=== PATIENT | female | born 1945 | race Caucasian/White ===

== ENCOUNTER 2023-10-26 06:25 | Inpatient (IN) | payer MEDICARE, SELFPAY ==
[2023-10-26] VITALS (11 sets, daily range): BP systolic 126–164; BP diastolic 56–91
--- NOTE | 2023-10-26 02:42 | ED.GENMED ---
History of Present Illness
<SUJEY Gross - Last Filed: 10/26/23 05:30>
General
Chief Complaint: Musculo-Skeletal Complaint
Source: records and ambulance crew
Exam Limitations: none
Time Seen by Provider: 10/26/23 02:23
Nursing documentation reviewed up to this point in time: agreed with
Travel History
Have you had any contact with someone who has COVID-19?: No
Do you have any symptoms of coronavirus? Fever > 100 degrees, chills, cough, shortness of breath, sore throat, loss of taste or smell, muscle aches, or headache?: No
History of Present Illness
History of Present Illness:
This is a 77 YOF AAOx 2 with PMHx of dementia, HTN, HLD, renal failure presenting with R leg pain. Pt is DNR. Pt arrived via EMS after being sent out from [place] facility. Pt fell 10/24/23 and was evaluated with Mobile Xray, reportedly R femoral neck
fracture noted. Films are not available to ED. Pt also reportedly fell on 10/14/23. XR was read with no abnormalities, but films do show R femoral neck Fx at that time. Head CT revealed small subdural hematoma as well. Pt is not on anticoags,
currently on ASA. Pt is complaining of R hip/leg pain and R hand pain at base of thumb/wrist, pain to palpation and pain with supination/pronation. General abd is distended and tense, no ecchymosis, rashing. TTP of general abd. Pt mentioned dysuria
while attempting to urinate with the [place]. Pt able to void small urine volume.
Past History
<SUJEY Gross - Last Filed: 10/26/23 05:30>
Past History
ED Past Medical History: HTN, Psychiatric and Other (dementia)
Social History
Tobacco: Non-smoker
Alcohol: None
Review of Systems
<SUJEY Gross - Last Filed: 10/26/23 05:30>
Review of Systems
Allergies reviewed?: Yes
All Other Systems: ROS reviewed and negative except as documented in HPI and ROS
Constitutional: Reports no symptoms
EENT: Reports no symptoms
Respiratory: Reports no symptoms
Cardiac: Reports no symptoms
ABD/GI: Reports no symptoms
: Reports dysuria
Musculoskeletal: Reports joint pain (R hip, R hand/wrist)
Skin: Reports no symptoms
Neurological: Reports no symptoms
Hematologic/Lymphatic: Reports no symptoms
Psychiatric: Reports no symptoms
Phy Exam
<Zahida Suazo [facility] - Last Filed: 10/26/23 05:30>
General Physical Exam
General Presentation: moderate distress
General age: appears older than age
General Skin: warm and dry
General Habitus: normal and obese
General Mental: confused
General Hydration: dry mucous membranes and poor skin turgor
General Chronic Disability: demented
Eye Exam
Eye Exam: PERRL
Cardiovascular Exam
Cardiovascular Exam: regular rate/rhythm, no edema, no gallop, no JVD, no murmur and normal peripheral pulses
Pulmonary Exam
Pulmonary Exam: lungs clear, no respiratory distress, no rales, no crackles, no rhonchi, no stridor, no wheezing and no cough
Gastrointestinal Exam
Gastrointestinal Exam: no pulsatile mass, distended, no masses and tender
Auscultation of Abdomen: hypoactive
Neurological Exam
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
Musculoskeletal Exam
Musculoskeletal Exam: neuro vasc intact
Skin Exam
Skin Exam: normal color, warm/dry, no rash and no petechia
Psychiatric Exam
Psychiatric Exam: normal mood/affect
Course
<Zahida Suazo [facility] - Last Filed: 10/26/23 05:30>
Orders/Labs/Results
Orders:
Orders
10/26/23 02:32
CR Hip - RT w/wo Pel 2-3 Vw* Urgent
Comment:
Reason For Exam: R leg pain
Include a pelvis x-ray?: Yes
10/26/23 02:40
Complete Blood Count/With Diff Urgent
Comprehensive Metabolic Panel Urgent
PTT Urgent
Prothrombin Time Urgent
10/26/23 03:53
CR Hand - Right Min 3 Views Urgent
Comment:
Reason For Exam: R hand pain
10/26/23 04:00
CR Wrist - Right Min 3 Views Urgent
Comment:
Reason For Exam: R wrist pain
10/26/23 04:32
Morphine Sulfate 2 mg IV NOW STA
10/26/23 04:33
CT Abd/pel Without Iv Or Oral Urgent
Comment: changed to abd/pel per DR assess fx and c/f bloating
Reason For Exam: fracture
10/26/23 05:07
Urinalysis Reflex To Culture Urgent
Date Specimen was Collected: 10/26/23
Time Specimen was Collected: 04:20
Abnormal Lab Results
10/26/23
02:40
WBC 18.2 H 10^3/uL
(4.8-10.8)
RBC 4.10 L 10^6/uL
(4.20-5.40)
Hct 35.3 L %
(37.0-47.0)
Plt Count 409 H 10^3/uL
(130-400)
Abs Immat Gran (auto) 0.1 H 10^3/uL
(0-0.05)
Absolute Neuts (auto) 14.7 H 10^3/uL
(1.4-6.5)
Absolute Monos (auto) 1.4 H 10^3/uL
(0.1-0.6)
Immature Gran % 0.6 H %
(0-0.5)
Neutrophils % 80.6 H %
(42.2-75.2)
Lymphocytes % 9.8 L %
(20.5-51.1)
APTT 41.5 H Sec
(23.4-35.0)
BUN 28 H mg/dl
(7-17)
Glucose 134 H mg/dl
(70-99)
Total Protein 6.1 L g/dl
(6.3-8.2)
Albumin 3.3 L g/dl
(3.5-5.0)
10/26/23 02:40
10/26/23 02:40
Vital Signs
Initial and Last Documented VS:
Initial Vital Signs
Temp Pulse Resp BP Pulse Ox
97.4 F 82 20 145/84 94
10/26/23 02:24 10/26/23 02:24 10/26/23 02:24 10/26/23 02:24 10/26/23 02:24
Last Documented Vital Signs
Temp Pulse Resp BP Pulse Ox
97.4 F 82 18 153/71 95
10/26/23 02:24 10/26/23 05:28 10/26/23 05:28 10/26/23 05:05 10/26/23 05:28
<Mikael Thompson, DO - Last Filed: 10/26/23 05:37>
Orders/Labs/Results
Orders:
Orders
10/26/23 02:32
CR Hip - RT w/wo Pel 2-3 Vw* Urgent
Comment:
Reason For Exam: R leg pain
Include a pelvis x-ray?: Yes
10/26/23 02:40
Complete Blood Count/With Diff Urgent
Comprehensive Metabolic Panel Urgent
PTT Urgent
Prothrombin Time Urgent
10/26/23 03:53
CR Hand - Right Min 3 Views Urgent
Comment:
Reason For Exam: R hand pain
10/26/23 04:00
CR Wrist - Right Min 3 Views Urgent
Comment:
Reason For Exam: R wrist pain
10/26/23 04:32
Morphine Sulfate 2 mg IV NOW STA
10/26/23 04:33
CT Abd/pel Without Iv Or Oral Urgent
Comment: changed to abd/pel per DR assess fx and c/f bloating
Reason For Exam: fracture
10/26/23 05:07
Urinalysis Reflex To Culture Urgent
Date Specimen was Collected: 10/26/23
Time Specimen was Collected: 04:20
Abnormal Lab Results
10/26/23
02:40
WBC 18.2 H 10^3/uL
(4.8-10.8)
RBC 4.10 L 10^6/uL
(4.20-5.40)
Hct 35.3 L %
(37.0-47.0)
Plt Count 409 H 10^3/uL
(130-400)
Abs Immat Gran (auto) 0.1 H 10^3/uL
(0-0.05)
Absolute Neuts (auto) 14.7 H 10^3/uL
(1.4-6.5)
Absolute Monos (auto) 1.4 H 10^3/uL
(0.1-0.6)
Immature Gran % 0.6 H %
(0-0.5)
Neutrophils % 80.6 H %
(42.2-75.2)
Lymphocytes % 9.8 L %
(20.5-51.1)
APTT 41.5 H Sec
(23.4-35.0)
BUN 28 H mg/dl
(7-17)
Glucose 134 H mg/dl
(70-99)
Total Protein 6.1 L g/dl
(6.3-8.2)
Albumin 3.3 L g/dl
(3.5-5.0)
10/26/23 02:40
10/26/23 02:40
Vital Signs
Initial and Last Documented VS:
Initial Vital Signs
Temp Pulse Resp BP Pulse Ox
97.4 F 82 20 145/84 94
10/26/23 02:24 10/26/23 02:24 10/26/23 02:24 10/26/23 02:24 10/26/23 02:24
Last Documented Vital Signs
Temp Pulse Resp BP Pulse Ox
97.4 F 82 18 153/71 95
10/26/23 02:24 10/26/23 05:28 10/26/23 05:28 10/26/23 05:05 10/26/23 05:28
<SUJEY Gross - Last Filed: 10/26/23 05:30>
MDM/Problems Addressed
Differential Diagnosis Includes:
R hip fx, R hand fx, R wrist fx, abd hemorrhage, bowel obstruction, constipation, R hand injury, UTI
MDM/Problems Addressed:
77 YOF presenting with R leg pain
Chronic conditions affecting care:
Dementia, frequent falls
Acute Exacerbation and/or Progression of Chronic Illness:
Dementia, frequent falls
<Mikael Thompson DO - Last Filed: 10/26/23 05:37>
*Radiology
Radiology exam reviewed: preliminary read by ED provider (Right hip fracture)
*Pulse Oximetry
Patient hypoxic: no
*Critical Care Note
Total Time (30-74mins, 75-104mins- exclusive of procedures): Not Applicable
<DO Manuel Allen Last Filed: 10/26/23 05:37>
Patient Management
Social determinants of health affecting care: Living situation
Discussion with other providers: [facility] (Dr. Jovana Rodgers, orthopedics)
<SUJEY Gross - Last Filed: 10/26/23 05:30>
Update Note
Update Note:
10/26/23 0529: Pt is sleeping soundly in bed. BP 157/71, HR 77, SpO2 94%.
<Mikael Thompson DO - Last Filed: 10/26/23 05:37>
Update Note
Update Note:
10/26/23528: Pt is sleeping soundly in bed. BP 157/71, HR 77, SpO2 94%.
CT A/P W/O IV CONTRAST
IMPRESSION:
Decreased sensitivity in the evaluation of the abdominal viscera due to lack of IV contrast.
No definite CT findings to account for the reported pain/symptoms.
No evidence of hydroureteronephrosis or obstructing stone. No signficant perinephric fat stranding.
Mild bladder wall thickening, greater than expected for the degree of distention. Mild fat infiltration along the margins. Possibly due to infection. Please check for signs of infection.
No appendicitis or colitis. Moderate colonic stool volume. Constipation?
No evidence of small bowel obstruction.
No free fluid or free air.
No AAA.
Bibasilar atelectasis and/or scarring
Case finalized at 511am ET.
ED Attending Note
<SUJEY Gross - Last Filed: 10/26/23 05:30>
-
Portions of this chart may have been created with voice recognition software.� Occasional wrong word or��sound alike� substitutions may have occurred due to the inherent limitations of voice recognition software.
<Mikael Thompson DO - Last Filed: 10/26/23 05:37>
ED Attending Note
Patient seen and examined by attending physician: Yes
I performed the substantive portion of visit, reviewed & personally made and approve the management plan that is documented in note by myself or JENI.: Yes
ED Attending Note:
This a pleasant 77-year-old female presents with right hip pain. She was sent from a nursing facility for evaluation of her right hip. She fell a few days ago and had a mobile x-ray today which showed a right hip fracture. patient also had a fall
on 10/14/2023. Patient did have a CT scan at last visit which showed a small subdural hematoma. She was made DNR and according to the last note, family did not want surgery. I did attempt to call family this evening with no answer. Patient was
seen in conjunction with the PA student. I have reviewed and agree with the history and treatment plan presented. Patient has ecchymosis about the face. She has right hip pain. Right leg is slightly shortened. Right wrist is tender to
palpation. Slight abdominal distention. Spoke with Agustina Rodgers, orthopedic surgery who saw the films.
10/26/2023 0343 AM I attempted to contact family without success. [phone]
10/26/2023 0403 AM: Third attempt to call family unsuccessful.
Discharge Plan
Departure
Patient Disposition: Admit
Date of Disposition: 10/26/23
Time of Disposition: 05:36
Admit to: Med/Surg
Presentation/result/management discussed w/ accepting MD/DO: Hospitalist
Condition: Good
Discharge Problem:
Closed hip fracture
Prescriptions:
No Action
atorvastatin [Lipitor] 40 mg Tablet
40 mg PO HS
acetaminophen [Tylenol] 325 mg Tablet
650 mg PO Q4HPRN PRN (Reason: mild pain)
cyanocobalamin (vitamin B-12) 1,000 mcg Tablet
1,000 mcg PO DAILY
Theragen Tablet
1 tab PO DAILY
melatonin 3 mg Tablet
3 mg PO HS
olanzapine [Zyprexa] 7.5 mg Tablet
7.5 mg PO HS
amlodipine [Norvasc] 10 mg Tablet
10 mg PO DAILY
pantoprazole [Protonix] 40 mg Tablet,Delayed Release (Dr/Ec)
40 mg PO DAILY
aspirin 81 mg Tablet,Chewable
81 mg PO DAILY
Referrals:
PRIVATE,PHYSICIAN [Family Provider] -
Interventions
Interventions:
*Risk Screen - Suicide Last Done: 10/26/23 02:24
*General Assessment Last Done: 10/26/23 02:24
*Neglect/Abuse Screening Last Done: 10/26/23 02:24
ED- Fall Risk Assessment Last Done: 10/26/23 02:40
*ED COVID-19 Vaccine History Last Done: 10/26/23 02:24
ED-Musculoskeletal Assessment Last Done: 10/26/23 02:40
[2023-10-26 03:07] LABS: % Basophils 0.4 % (0-2); % Eosinophils 0.9 % (0-6); % Immature Granulocytes 0.6 % (0-0.5); % Lymphocytes 9.8 % (20.5-51.1); % Monocytes 7.7 % (1.7-9.3); % Neutrophils 80.6 % (42.2-75.2); Absolute Basophils 0.1 10^3/uL (0-0.2); Absolute Eosinophils 0.2 10^3/uL (0-0.7); Absolute Immature Granulocytes 0.1 10^3/uL (0-0.05); Absolute Lymphocytes 1.8 10^3/uL (1.2-3.4); Absolute Monocytes 1.4 10^3/uL (0.1-0.6); Absolute Neutrophils 14.7 10^3/uL (1.4-6.5); Hematocrit 35.3 % (37.0-47.0); Hemoglobin 12.2 g/dL (12.0-16.0); Mean Corp Hgb Conc. 34.6 g/dL (33.0-37.0); Mean Corpuscular Hgb 29.8 pg (27.0-31.0); Mean Corpuscular Volume 86.1 fL (81.0-99.0); Mean Platelet Volume 8.8 fL (7.4-10.4); Nucleated Red Blood Cells % 0 %; Platelet Count 409 10^3/uL (130-400); Red Cell Dist. Width 14.2 % (11.5-14.5); White Blood Cell Count 18.2 10^3/uL (4.8-10.8)
[2023-10-26 03:23] LABS: INR 1.06
[2023-10-26 03:24] LABS: APTT 41.5 Sec (23.4-35.0)
[2023-10-26 03:39] LABS: ALT (SGPT) 21 U/L (0-35); AST (SGOT) 23 U/L (14-36); Albumin 3.3 g/dl (3.5-5.0); Alkaline Phosphatase 122 U/L (38-126); Blood Urea Nitrogen 28 mg/dl (7-17); Calcium 8.5 mg/dl (8.4-10.2); Carbon Dioxide 23 mmol/L (22-30); Chloride 103 mmol/L (98-107); Glucose 134 mg/dl (70-99); Potassium 4.2 mmol/L (3.5-5.1); Sodium 138 mmol/L (135-145); Total Bilirubin 0.8 mg/dl (0.2-1.3); Total Protein 6.1 g/dl (6.3-8.2); eGFR > 60.00
[2023-10-26] MEDS: MORPHINE SULFATE 2 MG IV (04:40)
[2023-10-26 05:31] LABS: Urine Albumin Trace (Neg - Trace); Urine Bilirubin Negative (Negative); Urine Color Yellow; Urine Glucose Negative (Negative); Urine Ketone Negative (Negative); Urine Leukocyte 2+ (Negative); Urine Nitrite Positive (Negative); Urine Occult Blood Trace (Negative); Urine Specific Gravity 1.005 (<1.030); Urine Urobilinogen Negative (Neg - 1+)
[2023-10-26 05:39] LABS: Urine Character Cloudy (Clear)
--- NOTE | 2023-10-26 06:10 | HPS.HSE ---
Addendum entered and electronically signed by Justice Angelo DO 10/26/23 06:24:
A/P:
Bladder Dysfunction
Abnormal UA
- Potential UTI / bladder dysfunction.
- Cover with IV ceftriaxone for now.
- Bladder scan protocol and cath as needed.
Constipation
Abdominal Distention
- Imaging in the ED reports no SBO.
- Abdomen is distended on exam - though not tender.
- No N/V.
- Bowel regimen and follow for adequate results.
- Monitor for improvement in distention.
- Consider further evaluation if patient develops N/V or other new complaints.
Original Note:
Family Physician
-
Family Physician: PHYSICIAN PRIVATE
Chief Complaint
-
Falls
History of Present Illness
Patient is a 77y F with PMH significant for hypertension, dementia and recent fall with SDH who presents to ED for evaluation of R hip / low back pain. Patient recently suffered a fall at her NH on 10/14/23. She was evaluated in the ED here at
that time and found to have evidence of SDH. She was transferred to [facility] for evaluation. Family ultimately opted for comfort measures. No intervention was performed.
Patient returned to her NH and suffered a second fall on 10/24/23.
She appeared to have increased pain in the low back / R hip following this and a hip x-ray was performed.
This shows a R femoral fracture and patient was sent to the ED for evaluation.
In the ED, patient complains of pain from BP cuff squeezing, but denies any other complaints at this time.
She is unable to tell me why she is here and she does not recall falling.
History from patient is very limited due to underlying dementia.
Medical History
Past Medical History
Past Medical History: Reports Other
Additional Past Medical History:
Senile Dementia with Behavioral Disturbance
Hypertension
Bladder Dysfunction
Gait Dysfunction
Past Surgical History: Reports Other
Additional Past Surgical History:
None Known
Social History
Unable to obtain full social history at this time due to: Dementia
Family History
Family History: Unable to Obtain
Allergies / Home Medications
Allergies reflects when Allergies were last updated in [facility] [employer]
Home Medications with original date entered in [facility] [facility] [employer]
Allergy/Medication List:
Allergies
Allergy/AdvReac Type Severity Reaction Status Date / Time
Penicillins Allergy Unknown Verified 10/14/23 11:59
Home Medications
acetaminophen 325 mg tablet (Tylenol) 650 mg PO Q4HPRN PRN mild pain 10/14/23
amlodipine 10 mg tablet (Norvasc) 10 mg PO DAILY 10/14/23
aspirin 81 mg chewable tablet 81 mg PO DAILY 10/14/23
atorvastatin 40 mg tablet (Lipitor) 40 mg PO HS 10/14/23
cyanocobalamin (vitamin B-12) 1,000 mcg tablet 1,000 mcg PO DAILY 10/14/23
melatonin 3 mg tablet 3 mg PO HS 10/14/23
olanzapine 7.5 mg tablet (Zyprexa) 7.5 mg PO HS 10/14/23
pantoprazole 40 mg tablet,delayed release (Protonix) 40 mg PO DAILY 10/14/23
therapeutic multivitamin 1 tab PO DAILY 10/14/23
Review of Systems
-
Unable to obtain full review of systems at this time due to: Other (Limited ROS obtained secondary to dementia. Patient denies any back pain / hip pain at present. No chest pain / dyspnea.)
History Source: Patient
A 12 point ROS was completed and negative except as noted: No
Physical Exam
Vital Signs
Vital Signs
Temp Pulse Resp BP Pulse Ox
97.4 F 82 18 153/71 95
10/26/23 02:24 10/26/23 05:28 10/26/23 05:28 10/26/23 05:05 10/26/23 05:28
Physical Exam
General: Other (77y F in no distress.)
HEENT: Other (Ecchymosis and some evident edema in periorbital regions. Eyes open and vision seems intact. No headache / neck stiffness. etc.)
Respiratory: Clear; No Wheezes, Rales or Rhonchi
Cardiac: S1/S2 and Regular Rhythm
GI: Other (Distended and tympanic. Bowel sounds are appreciated. Not tender. No rebound / guarding.)
Musculoskeletal: No Clubbing, No Cyanosis and Other (1-2+ pitting edema. RLE externally rotated.)
Neuro: Awake and Alert; No Oriented
Laboratory Results
-
10/26/23 02:40
10/26/23 02:40
Laboratory Results
PT 14.0 Sec (11.4-14.6) 10/26/23 02:40
INR 1.06 10/26/23 02:40
APTT 41.5 Sec (23.4-35.0) H 10/26/23 02:40
Total Bilirubin 0.8 mg/dl (0.2-1.3) 10/26/23 02:40
AST 23 U/L (14-36) 10/26/23 02:40
ALT 21 U/L (0-35) 10/26/23 02:40
Alkaline Phosphatase 122 U/L (38-126) 10/26/23 02:40
Impression/Plan
-
A/P: Patient is a 77y F with PMH significant for HTN and dementia who presents to ED for evaluation of R hip fracture.
Right Hip Fracture
- Admit for further evaluation and treatment.
- Unclear when this took place as - in retrospect - it appears this may have been present on 10/14 images.
- Pain control. Bedrest. Supportive care for now.
- Ortho evaluation.
- Unable to reach family this evening despite multiple attempts to determine whether operative intervention would be desired.
SDH
- s/p fall on 10/14 with SDH and subsequent admission to [facility].
- No intervention performed.
- Patient is awake and interactive.
- Ecchymosis / evident sequelae of recent trauma is apparent.
- Monitor for changes in Neuro status.
- Family declined any neurosurgical intervention at time of original diagnosis.
Benign Hypertension
- BP somewhat elevated in the ED - likely secondary to pain.
- Continue outpatient amlodipine.
- Continue efforts at pain control.
Senile Dementia with Behavioral Disturbance
- Baseline is not clear and unable to review with family at this time.
- Continue current meds including HS Zyprexa.
- Follow for delirium / changes in mood during acute hospitalization.
DVT Prophylaxis: SCDs
Code Status: DNR per Advanced Directive
[2023-10-26 06:15] LABS: Urine Amorphous Seen; Urine Bacteria Many (Negative); Urine Mucus Moderate; Urine Squamous Cell >30 /LPF (Few); Urine White Cell >100 /HPF (0-5)
--- NOTE | 2023-10-26 09:44 | W.PN.UPDATE ---
Update Note
Progress Note Update
Patient seen on morning rounds. Full consult note to follow.
Unfortunately, it appears Jovana sustained a right femoral neck fracture in her fall. We recommend proceeding with a right hip hemiarthroplasty. The risks, benefits, alternatives, recovery process and potential complications were discussed with her
brother, Figueroa. He would like to proceed with surgical intervention of Jovana's fracture. Surgical and blood consents were obtained over the phone and are on the patient's chart. We will proceed with surgery on 10/28/23 under the direction of
Dr. Rodgers.
--NWB to RLE.
--NPO after midnight for surgery 10/28.
--Continue pain control per primary.
[2023-10-26] MEDS: TYLENOL 1000 MG PO ×2 (09:52→21:19)
[2023-10-26] MEDS: NSS 1000 IV (09:53)
[2023-10-26] MEDS: STERILE WATER FOR INJECTION 10 ML IV (09:54)
[2023-10-26] MEDS: ROCEPHIN 1000 MG IV (09:55)
--- NOTE | 2023-10-26 09:56 | W.PN.HOSP.TC ---
Addendum entered and electronically signed by Tanvi Faust MD 10/26/23 13:15:
SPL [facility] IDDSI soft and bite size , diet changed to such
Original Note:
Today's Communication/Plan
-
see A/P
Assessment / Plan
Assessment / Plan
HPI:�77y F with PMH significant for hypertension, dementia and recent fall with SDH who presented to ED for evaluation of R hip / low back pain.�
Patient recently suffered a fall at her NH on 10/14/23.� She was evaluated in the ED here at that time and found to have SDH.�She was transferred to [facility] for evaluation. Family ultimately opted for comfort measures.�No intervention was performed.
Patient returned to her NH and suffered a second fall on 10/24/23.
She appeared to have increased pain in the low back / R hip following this and a hip x-ray was performed. This showed a R femoral fracture and patient was sent to the ED for evaluation.
In the ED, patient complains of pain from BP cuff squeezing, but denies any other complaints at this time.
She is unable to tell why she is here and she does not recall falling.
History from patient is very limited due to underlying dementia.
A/P:
# Right Hip Fracture
Unclear when this took place as - in retrospect - it may have been present on 10/14 images.
Cont Pain control with Tylenol, Tramadol, Morphine PRN.� Bedrest.�
Ortho on board: [facility] Right hip hemiarthroplasty for her Right femoral neck fracture. Plan for surgery on 10/28/[address] Rodgers. NPO after midnight for surgery 10/28.
NWB to RLE.
Pt is medically stable for low-mod risk procedure
# SDH
# s/p fall on 10/14 with SDH and subsequent admission to [facility].
No intervention performed.
Patient is awake and interactive, though not orientated due to underlying dementia.
Ecchymosis / evident sequelae of recent trauma is apparent.
Monitor for changes in Neuro status.
Family declined any neurosurgical intervention at time of original diagnosis.
# Benign Hypertension
BP somewhat elevated in the ED - likely secondary to pain.
Holding [employer] amlodipine with BL LE edema.
Will order Lasix 40 mg x1 for pedal edema.
use IV hydralazine IV PRN for SBP > 160
No additional IVF
Continue efforts at pain control.
# Senile Dementia with Behavioral Disturbance
Baseline is not clear and unable to review with family at this time.
Continue current meds including HS Zyprexa.
Follow for delirium / changes in mood during acute hospitalization.
# Possible UTI
# Leucocytosis
Follow urine Cx
Pt was started with ceftriaxone, cont
DVT Prophylaxis:� SCDs
Code Status:� DNR per Advanced Directive
DW RN
Anticipated Discharge: > 48 hours
Subjective/Interval History
-
Date of Service: October 26, 2023
Objective Data
-
Labs:
Laboratory Results
10/26/23
02:40
WBC 18.2 H
Hgb 12.2
Hct 35.3 L
Plt Count 409 H
PT 14.0
INR 1.06
APTT 41.5 H
Sodium 138
Potassium 4.2
Chloride 103
Carbon Dioxide 23
BUN 28 H
Creatinine 0.7
Glucose 134 H
Calcium 8.5
Total Bilirubin 0.8
AST 23
ALT 21
Alkaline Phosphatase 122
Vital Signs:
Vital Signs
Temp Pulse Resp BP Pulse Ox
36.4 C 82 16 164/83 91
10/26/23 08:00 10/26/23 08:00 10/26/23 08:00 10/26/23 08:00 10/26/23 08:00
Review of Systems
-
Unable to obtain full review of systems at this time due to: Dementia
Physical Exam
-
General: Well Developed, Well Nourished, No Apparent Distress and Comfortable; Negative Respiratory Distress
HEENT: Normocephalic, Atraumatic, Nose Appears Normal and Ears Appear Normal; Negative Oxygen
Respiratory: Clear to Auscultation and Non Labored Respirations; Negative Accessory Resp Muscle Use
Cardiac: Regular Rhythm and S1/S2
GI: Soft, Nontender, Nondistended and Normal Bowel Sounds
Musculoskeletal: Edema, Right Lower Extrem and Edema, Left Lower Extrem
Skin: Warm and Dry
Neuro: Awake
Psych: Calm and Apparent Dementia
Data Reviewed
-
Labs: Labs Reviewed by me
[2023-10-26] MEDS: PROTONIX 40 MG PO (09:57)
[2023-10-26] MEDS: COLACE 100 MG PO (09:57)
[2023-10-26] MEDS: SENOKOT 8.59999999999999964 MG PO ×2 (09:57→21:19)
[2023-10-26] MEDS: NORVASC 10 MG PO (09:57)
[2023-10-26] MEDS: MIRALAX 17 GRAMS PO (09:58)
[2023-10-26] MEDS: LASIX 40 MG IV (10:42)
--- NOTE | 2023-10-26 12:18 | CON.ORTHO ---
Consultation
-
Date/Time Consultation Requested: 10/26/2023; time unknown
Date/Time Consultation Performed: 10/26/2023; 0800
Requesting Provider: unknown
Performing Provider: Alysia Guzman PA-C for Dr. Jovana Rodgers
Reason for Consultation: Right hip fracture
Consultation - Orthopedics
History
Ms. Robin is a 77 year old female with PMH of HTN and dementia. She was seen here for a recent fall and SDH on 10/14/2023. She was transferred to [place] for further management at that time. She returned to her fpc and had a second fall
on 10/24/2023. Patient is a limited historian secondary to dementia, so history was taken from medicine note and from her brother, Figueroa. He reports she has been complaining of hip and thigh pain for the last week or so. She was transferred to ED
from her fpc where x-rays and CT scan revealed a femoral neck fracture. She is resting comfortably in bed this morning, and denies any pain in the hip at present.
Per her brother, she typically ambulates with the assistance of a walker at baseline. He denies previous orthopedic surgeries or difficulty with anesthesia. He denies PMH of DVT, CVA, [place] or DM.
Allergies / Home Medications
Allergy/AdvReac Type Severity Reaction Status Date / Time
Penicillins Allergy Unknown Verified 10/14/23 11:59
Medication Instructions Recorded
acetaminophen 325 mg tablet 650 mg PO Q4HPRN PRN mild pain 10/14/23
(Tylenol)
amlodipine 10 mg tablet (Norvasc) 10 mg PO DAILY 10/14/23
aspirin 81 mg chewable tablet 81 mg PO DAILY 10/14/23
atorvastatin 40 mg tablet (Lipitor) 40 mg PO HS 10/14/23
cyanocobalamin (vitamin B-12) 1,000 mcg PO DAILY 10/14/23
1,000 mcg tablet
melatonin 3 mg tablet 3 mg PO HS 10/14/23
olanzapine 7.5 mg tablet (Zyprexa) 7.5 mg PO HS 10/14/23
pantoprazole 40 mg tablet,delayed 40 mg PO DAILY 10/14/23
release (Protonix)
therapeutic multivitamin 1 tab PO DAILY 10/14/23
Vital Signs / Lab Results
Temp Pulse Resp BP Pulse Ox
97.6 F 82 16 164/83 91
10/26/23 08:00 10/26/23 08:00 10/26/23 08:00 10/26/23 09:57 10/26/23 08:00
10/26/23 02:40
10/26/23 02:40
XR Right Hip 10/26/2023 reveals right femoral neck fracture.
CTA 10/26/2023 IMPRESSION:
Fracture, neck, proximal right femur.
Physical Exam:
General: pleasant female in NAD, oriented to self
Head: ecchymosis about bilateral orbits and scattered about face
Eyes: sclera anicteric
Ears: normal hearing
Lungs: normal work of breathing
Heart: no edema
Right hip: No obvious erythema, ecchymosis, edema or lesions. Mild tenderness to palpation about the lateral and anterior hip. ROM deferred secondary to known fracture. Positive log roll. Calf soft and nontender. Patient able to wiggle toes, plantar
and dorsiflex ankle. Neurovascularly intact distally.
Assessment / Plan
Right femoral neck fracture
--Unfortunately, it appears Jovana sustained a right femoral neck fracture in her fall. We recommend proceeding with a right hip hemiarthroplasty. The risks, benefits, alternatives, recovery process and potential complications were discussed with her
brother, Figueroa. He would like to proceed with surgical intervention of Jovana's fracture. Surgical and blood consents were obtained over the phone and are on the patient's chart. We will proceed with surgery on 10/28/23 under the direction of
Dr. Rodgers.
--NWB to RLE.
--NPO after midnight for surgery 10/28.
--Continue pain control per primary. Ice and elevation for edema control.
--T+S
--Antibiotics and irrigation ordered to OR.
--Orthopedics will continue to follow along.
--- NOTE | 2023-10-26 13:13 | PTOTSP ---
Dysphagia Evaluation
Patient presents with signs concerning for mild oral dysphagia with no signs concerning for pharyngeal dysphagia or aspiration observed at the bedside.
She has chronic risk factors for dysphagia (i.e., dementia, hiatal hernia) and is at an elevated risk for complications if aspiration were to occur at this time given decreased mobility after a hip fracture. She is on a modified diet (mechanical
soft) at baseline and is appropriate to continue this.
Recommend:
1. IDDSI Level 6 (soft and bite sized), IDDSI Level 0 (thin liquids)
2. Medications - crushed in puree if medically cleared to do so
3. Supervision and assistance as needed to use swallowing strategies
4. Strategies: alternate solids and liquids, ensure patient clears oral cavity before next sip/bite, reflux precautions (upright to 30 degrees after PO intake)
5. Oral care 3-5x daily
Patient is at her baseline diet and dysphagia tx not warranted. Please reconsult post-op if any signs of dysphagia noted after intubation for OR.
--- NOTE | 2023-10-26 16:03 | PTCARENOTE ---
Received patient from ER around 0730 via stretcher in stable condition. Patient confused. Not oriented to time or place. Bed alarm in place. Pain only with movement. SCDs applied as ordered but patient pulling off. Patient pulled out IV site.
Patient was attempting to climb out of bed and taking off gown and hospital bracelets. Med Sitter put in place. At around 1500 patient became more agitated and aggressive with staff. Pull at IV and taking off gown. Attempting to climb out of bed.
Patient yelling at staff for a rosado. Unable to reorient. Dr. Faust notified. Ativan 0.5 mg IV ordered. Pending pharmacy approval. Will continue to monitor.
[2023-10-26] MEDS: NSS (PRESERVATIVE FREE) 0.25 ML IV (16:29)
[2023-10-26] MEDS: ATIVAN 0.5 MG IV (16:29)
[2023-10-26] MEDS: TYLENOL PO (16:35)
--- NOTE | 2023-10-26 16:46 | CM ---
Chart reviewed. Spoke with pts brother Figueroa
Pt with R hip fx - for OR on 10/28
Verified resident at [facility]
Spoke with Figueroa - pts brother
Prior to admission pt was living in [facility] at [place] - dementia
Baseline ambulating with rolling walker, assist with adl's - needs direction
Plan - tbd based on PT/OT post-op needs
--- NOTE | 2023-10-26 20:19 | W.PN.UPDATE ---
Update Note
Progress Note Update
Agree with orthopedic PA note. Orthopedic PA spoke with brother who is power of convex grinder for consent for operation. Patient does have dementia.
Apparently she has sustained multiple falls last of which was 2 days ago. She did have an acute subdural bleed recently.
Right lower extremity: Mild shortening. Pain with logroll. Neurovascularly intact. No ecchymosis.
X-rays and CT scan of right hip and abdomen and pelvis show a displaced femoral neck fracture. No lesions. Unsure of chronicity
Impression displaced right femoral neck fracture
Plan: Nonoperative and operative approaches were discussed with patient and brother who is power of convex grinder. He is in agreement with right hip hemiarthroplasty. We will proceed with the surgery on Tuesday once patient is medically optimized and
proper staffing/OR time is available. The risks are but are not limited to infection, need for further surgery, need for physical therapy, stiffness, DVT, PE, catastrophic occurrences, periprosthetic fracture, dislocation, limb length discrepancy,
neurovascular impairment, foot drop, etc. Consent was signed by brother who is power of convex grinder via telephone conversation.
[2023-10-26] MEDS: ZYPREXA 7.5 MG PO (21:19)
[2023-10-26] MEDS: COLACE PO ×2 (21:19→21:30)
--- NOTE | 2023-10-27 06:17 | W.PN.UPDATE ---
Update Note
Progress Note Update
Patient seen and evaluated this morning by orthopedic surgery. Patient is laying comfortably in bed, does not appear to be in any acute distress.
PE: Mild shortening of the right lower extremity. Pain with logroll. Neurovascularly intact. No ecchymosis.
Plan: Will plan to proceed with right hip hemiarthroplasty under direction of Dr. Rodgers 10/28/2023. Patient has been medically cleared to proceed with surgical intervention. Hemoglobin today 12.1, continue to monitor. NWB to RLE until
postop. NPO after midnight for surgery 10/28. Continue pain control per primary team. Ice and elevation for edema control. Type and screen completed. Right hip marked as the correct surgical extremity. Antibiotics and irrigation will call to the
OR. Surgical and blood consent forms have been obtained. Orthopedic surgery will continue to follow along.
[2023-10-27 06:38] LABS: Hematocrit 35.1 % (37.0-47.0); Hemoglobin 12.1 g/dL (12.0-16.0); Mean Corp Hgb Conc. 34.5 g/dL (33.0-37.0); Mean Corpuscular Volume 87.1 fL (81.0-99.0); Platelet Count 439 10^3/uL (130-400); Red Blood Cell Count 4.03 10^6/uL (4.20-5.40); Red Cell Dist. Width 14.1 % (11.5-14.5); White Blood Cell Count 20.4 10^3/uL (4.8-10.8)
[2023-10-27 07:02] LABS: Blood Urea Nitrogen 23 mg/dl (7-17); Calcium 9.1 mg/dl (8.4-10.2); Carbon Dioxide 27 mmol/L (22-30); Chloride 102 mmol/L (98-107); Glucose 120 mg/dl (70-99); Magnesium 2.2 mg/dl (1.6-2.3); Potassium 3.6 mmol/L (3.5-5.1); Sodium 138 mmol/L (135-145); eGFR > 60.00
[2023-10-27 07:25] VITALS: BP 138/75
[2023-10-27] MEDS: STERILE WATER FOR INJECTION 10 ML IV (08:28)
[2023-10-27] MEDS: COLACE PO ×3 (08:29→20:23)
[2023-10-27] MEDS: ROCEPHIN 1000 MG IV (08:29)
[2023-10-27] MEDS: SENOKOT PO ×3 (10:16→20:23)
[2023-10-27] MEDS: TYLENOL PO ×2 (10:16→23:27)
[2023-10-27] MEDS: MIRALAX PO (10:16)
[2023-10-27] MEDS: PROTONIX PO (10:16)
--- NOTE | 2023-10-27 10:59 | W.PN.HOSP.TC ---
Today's Communication/Plan
-
see A/P
Assessment / Plan
Assessment / Plan
HPI:�77y F with PMH significant for hypertension, dementia and recent fall with SDH who presented to ED for evaluation of R hip / low back pain.�
Patient recently suffered a fall at her NH on 10/14/23.� She was evaluated in the ED here at that time and found to have SDH.�She was transferred to [facility] for evaluation. Family ultimately opted for comfort measures.�No intervention was performed.
Patient returned to her NH and suffered a second fall on 10/24/23.
She appeared to have increased pain in the low back / R hip following this and a hip x-ray was performed. This showed a R femoral fracture and patient was sent to the ED for evaluation.
In the ED, patient complains of pain from BP cuff squeezing, but denies any other complaints at this time.
She is unable to tell why she is here and she does not recall falling.
History from patient is very limited due to underlying dementia.
A/P:
# Right Hip Fracture
Unclear when this took place as - in retrospect - it may have been present on 10/14 images.
Cont Pain control with Tylenol, Tramadol, Morphine PRN.�Cont bowel regimen.
Ortho recc Right hip hemiarthroplasty on Tuesday10/28/[address] Rodgers. NPO after midnight for surgery 10/28.
NWB to RLE.
Pt is medically stable for low-mod risk procedure
# SDH
# s/p fall on 10/14 with SDH and subsequent admission to [facility].
No intervention performed.
Patient is awake and interactive, though not orientated due to underlying dementia.
Ecchymosis / evident sequelae of recent trauma is apparent.
Monitor for changes in Neuro status.
Family declined any neurosurgical intervention at time of original diagnosis.
# Benign Hypertension
BP somewhat elevated in the ED - likely secondary to pain.
Holding FOUNDRY PROCESS ENGINEER amlodipine with BL LE edema.
s/p Lasix 40 mg x1 for pedal edema, which helped.
use IV hydralazine IV PRN for SBP > 160
No additional IVF
Continue efforts at pain control.
# Senile Dementia with Behavioral Disturbance
She is awake, minimally conversant, not orientated at baseline
s/p Ativan and Seroquel
Cont FOUNDRY PROCESS ENGINEER Zyprexa HS
Follow for delirium / changes in mood during acute hospitalization.
# Possible UTI with Leucocytosis
Follow urine Cx, blood culture
Pt was started with ceftriaxone, cont
DVT Prophylaxis:� SCDs
Code Status:� DNR per Advanced Directive
Anticipated Discharge: > 48 hours
Subjective/Interval History
-
Date of Service: October 27, 2023
Objective Data
-
Labs:
Laboratory Results
10/27/23
05:51
WBC 20.4 H
Hgb 12.1
Hct 35.1 L
Plt Count 439 H
Sodium 138
Potassium 3.6
Chloride 102
Carbon Dioxide 27
BUN 23 H
Creatinine 0.7
Glucose 120 H
Calcium 9.1
Vital Signs:
Vital Signs
Temp Pulse Resp BP Pulse Ox
36.6 C 93 18 138/75 93
10/27/23 07:25 10/27/23 07:25 10/27/23 07:25 10/27/23 07:25 10/27/23 07:25
I&O
10/26/23 10/27/23 10/28/23
06:59 06:59 06:59
Intake Total 120 / 120
Output Total 1500 / 1500
Balance -1380 / -1380
Review of Systems
-
Unable to obtain full review of systems at this time due to: Dementia
Physical Exam
-
General: Well Developed, Well Nourished, No Apparent Distress and Comfortable; Negative Respiratory Distress
HEENT: Normocephalic, Atraumatic, Nose Appears Normal and Ears Appear Normal; Negative Oxygen
Respiratory: Clear to Auscultation and Non Labored Respirations; Negative Accessory Resp Muscle Use
Cardiac: Regular Rhythm and S1/S2
GI: Soft, Nontender, Nondistended and Normal Bowel Sounds
Musculoskeletal: Edema, Right Lower Extrem and Edema, Left Lower Extrem
Skin: Warm and Dry
Neuro: Awake
Psych: Calm and Apparent Dementia
Data Reviewed
-
Labs: Labs Reviewed by me
[2023-10-27 15:20] VITALS: BP 142/87
[2023-10-27] MEDS: TYLENOL 1000 MG PO (15:55)
[2023-10-27 23:05] VITALS: BP 157/80
[2023-10-27] MEDS: ZYPREXA PO (23:28)
[2023-10-28] VITALS (9 sets, daily range): BP systolic 102–127; BP diastolic 46–76
[2023-10-28 06:33] LABS: Hematocrit 33.7 % (37.0-47.0); Hemoglobin 11.5 g/dL (12.0-16.0); Mean Corp Hgb Conc. 34.1 g/dL (33.0-37.0); Mean Corpuscular Hgb 30.3 pg (27.0-31.0); Mean Corpuscular Volume 88.9 fL (81.0-99.0); Platelet Count 398 10^3/uL (130-400); Red Blood Cell Count 3.79 10^6/uL (4.20-5.40); Red Cell Dist. Width 14.3 % (11.5-14.5); White Blood Cell Count 18.5 10^3/uL (4.8-10.8)
[2023-10-28 07:05] LABS: Blood Urea Nitrogen 26 mg/dl (7-17); Calcium 8.6 mg/dl (8.4-10.2); Carbon Dioxide 24 mmol/L (22-30); Chloride 105 mmol/L (98-107); Glucose 81 mg/dl (70-99); Potassium 3.6 mmol/L (3.5-5.1); Sodium 141 mmol/L (135-145); eGFR > 60.00
--- NOTE | 2023-10-28 09:13 | W.PN.UPDATE ---
Update Note
Progress Note Update
Patient resting. Also with dementia. Plan for hemiarthroplasty of the right hip is later today, with medical clearance, under the direction of Dr. Rodgers. Orders are placed. Any communication I'm told should go through her brother, Figueroa
[2023-10-28] MEDS: MIRALAX PO (09:20)
[2023-10-28] MEDS: COLACE PO ×3 (09:20→21:11)
[2023-10-28] MEDS: ROCEPHIN 1000 MG IV (09:20)
[2023-10-28] MEDS: PROTONIX PO (09:20)
[2023-10-28] MEDS: SENOKOT PO (09:20)
[2023-10-28] MEDS: TYLENOL PO ×2 (09:20→16:17)
[2023-10-28] MEDS: STERILE WATER FOR INJECTION 10 ML IV (09:21)
--- NOTE | 2023-10-28 09:29 | CM ---
Late entry note-10/27/2023
Received call from Adelaide at [facility] who requested that fax be sent through [employer] for [facility]. Referral sent. She stated to choose [place] location.
Plan: Case management will continue to follow and assist with discharge planning. Patient plan remains return home with VN services (resumption), through [facility] ([place]).
--- NOTE | 2023-10-28 12:44 | W.PN.HOSP.TC ---
Today's Communication/Plan
-
see bold
Assessment / Plan
Assessment / Plan
HPI:�77y F with PMH significant for hypertension, dementia and recent fall with SDH who presented to ED for evaluation of R hip / low back pain.�
Patient recently suffered a fall at her NH on 10/14/23.� She was evaluated in the ED here at that time and found to have SDH.�She was transferred to [facility] for evaluation. Family ultimately opted for comfort measures.�No intervention was performed.
Patient returned to her NH and suffered a second fall on 10/24/23.
She appeared to have increased pain in the low back / R hip following this and a hip x-ray was performed. This showed a R femoral fracture and patient was sent to the ED for evaluation.
In the ED, patient complains of pain from BP cuff squeezing, but denies any other complaints at this time.
She is unable to tell why she is here and she does not recall falling.
History from patient is very limited due to underlying dementia.
Gen: NAD, opens eyes to voice and then is awake and alert but is not answering questions. Aside from periorbital ecchymoses, normocephalic atraumatic
Eyes: EOMI, PERRLA, no scleral icterus.
Neck: supple.
CV: RRR, +S1/S2, no m/r/g.
Resp: CTAB, no rales, wheezes, or rhonchi.
Abd: +BS, soft, NT, ND
Skin: No rashes.
Neuro: CN 2-12 intact, non-focal.
Psych: Normal mood and affect.
Right Hip Fracture
-Unclear when this took place as - in retrospect - it may have been present on 10/14 images.
-Cont Pain control with Tylenol, Tramadol, Morphine PRN.�Cont bowel regimen.
-s/p OR today, plan was for R hemiarthroplasty. Op note is not in the computer yet.
SDH
-s/p fall on 10/14/23 with SDH and subsequent admission to [facility].
-No intervention performed. Family declined any neurosurgical intervention at time of original diagnosis.
Essential hypertension:
-current BPs acceptable off antihypertensives at this time
Senile Dementia with Behavioral Disturbance
-awake, minimally conversant, not orientated at baseline at baseline
-s/p Ativan and Seroquel
-Cont Zyprexa HS
Possible UTI with Leukocytosis:
-UCx contaminated, BCxs NGTD
-cont Rocephin for now
-A component of the patient's leukocytosis is likely reactive. Also note patient had a leukocytosis of 17.1 on October 14, 2023.
DNR/SCDs
Anticipated Discharge: Within 24 hours
Subjective/Interval History
-
Date of Service: October 28, 2023
Patient seen in PACU. Opens eyes to voice and moans.
Objective Data
-
Labs:
Laboratory Results
10/28/23
05:39
WBC 18.5 H
Hgb 11.5 L
Hct 33.7 L
Plt Count 398
Sodium 141
Potassium 3.6
Chloride 105
Carbon Dioxide 24
BUN 26 H
Creatinine 0.8
Glucose 81
Calcium 8.6
Vital Signs:
Vital Signs
Temp Pulse Resp BP Pulse Ox
98.2 F 90 18 127/46 93
10/28/23 08:51 10/28/23 08:51 10/28/23 08:51 10/28/23 08:51 10/28/23 08:51
I&O
10/27/23 10/28/23 10/29/23
06:59 06:59 06:59
Intake Total 120 / 120
Output Total 1500 / 1500
Balance -1380 / -1380
[2023-10-28] MEDS: ANCEF 10 IV (13:18)
[2023-10-28] MEDS: NSS 1000 IV (15:42)
--- NOTE | 2023-10-28 16:08 | PTCARENOTE ---
Pt arrived back to [facility] from PACU s/p right hip hemiarthroplasty. R hip aquacel with scant amount of drainage, abductor pillow in place, IVF infusing, on 2L NC satting 97%. Pt unable to tell me if she is in pain but looks comfortable. Bed locked
and in lowest position, call francis within reach.
[2023-10-28] MEDS: ASPIRIN PO (17:59)
[2023-10-28] MEDS: BACTROBAN 2% OINTMENT 1 APPLIC NASAL (20:54)
[2023-10-28] MEDS: TYLENOL 650 MG PO (20:55)
[2023-10-28] MEDS: SENOKOT 17.1999999999999993 MG PO (20:55)
[2023-10-28] MEDS: ANCEF 5 IV (21:55)
[2023-10-28] MEDS: ZYPREXA 7.5 MG PO (21:55)
[2023-10-29] VITALS (7 sets, daily range): BP systolic 116–146; BP diastolic 58–84; PULSE 80–87; O2SAT 97
[2023-10-29] MEDS: TYLENOL PO ×4 (01:10→23:42)
[2023-10-29] MEDS: ULTRAM 50 MG PO ×2 (04:37→21:07)
[2023-10-29] MEDS: TYLENOL 650 MG PO ×3 (04:38→17:37)
[2023-10-29] MEDS: ANCEF 5 IV (06:07)
[2023-10-29] MEDS: FLUSH (NSS) 2 FLUSH IV (06:07)
--- NOTE | 2023-10-29 06:33 | PTCARENOTE ---
Upon routine rounds patient moaning and stating that she fang to go to the bathroom. Patient encouraged to try to void. She urinated 100ml cloudy yellow urine through the Purewick. Bladder scan for >800ml and straight cath for 900ml. Patient
rested quietly after straight cath. Able to take meds crushed in applesauce and small sips of water and latoya cuca with frequent verbal cues. Right hip with scant drainage to Aquacel. Patient able to move foot. Cap refill < 2 sec Patient cannot
state what her sensation level is due to confusion. Abductor pillow in place. Repeat bladder scan this am 222ml. Patient given Ultram 50mg for hip pain and is currently sleeping quietly.
--- NOTE | 2023-10-29 08:08 | W.PN.ORTHO ---
Today's Communication / Plan
-
77 yo F POD 1 right hip hemiarthroplasty under the direction of Dr. Rodgers
--WBAT to RLE with walker. THPs until 6-8 weeks post-op. We appreciate the assistance of PT/OT.
--Recommend ASA 325 mg daily x4 weeks for DVT ppx.
--Continue current pain management regimen. Ice and elevation for edema control.
--Hgb pending this AM. Continue to monitor.
--Surgical dressing to remain in place until 7-10 days post-op. Staple removal at 2 weeks post-op (office or SNF). If removed at SNF, outpatient ortho follow up at 4 weeks.
--Case management consult for discharge planning.
--Orthopedics will continue to follow along.
Assessment
.
Distal Motor Intact: Yes
Dressing:
Clean, dry and intact.
Plan
.
Surgery / Date: Right hip hemiarthroplasty, [place]
DVT Prophylaxis: Aspirin
Activity:
Out of bed.
PT/OT
Subjective
.
.:
Ms. Robin is POD1 following her right hip hemiarthroplasty performed by Dr. Rodgers. She is resting comfortably in bed this morning. She is quite confused as per her baseline, but did answer some simple questions and follow direction.
Vital Signs and Labs
.
Vital Signs and Labs:
Temp Pulse Resp BP Pulse Ox
98 F 84 16 146/84 98
10/29/23 07:53 10/29/23 07:53 10/29/23 07:53 10/29/23 07:53 10/29/23 07:53
PT 14.0 Sec (11.4-14.6) 10/26/23 02:40
INR 1.06 10/26/23 02:40
Non-invasive Hgb result: 13.0
Physical Exam
-
Directed exam of the right lower extremity reveals surgical dressing clean, dry and intact. No tenderness to palpation about the hip. Thigh soft and compressible. Calf soft and nontender. Patient able to wiggle toes, plantar and dorsiflex ankle.
Patient verbalized sensation intact to light touch distally. Capillary refill <2 seconds.
[2023-10-29] MEDS: SENOKOT 17.1999999999999993 MG PO (08:21)
[2023-10-29] MEDS: PROTONIX 40 MG PO (08:21)
[2023-10-29] MEDS: ROCEPHIN 1000 MG IV (08:21)
[2023-10-29] MEDS: STERILE WATER FOR INJECTION 10 ML IV (08:21)
[2023-10-29] MEDS: COLACE 100 MG PO (08:21)
[2023-10-29] MEDS: MIRALAX 17 GRAMS PO (08:21)
[2023-10-29] MEDS: ASPIRIN 325 MG PO (08:21)
[2023-10-29 08:22] LABS: Hemoglobin 11.1 g/dL (12.0-16.0); Mean Corp Hgb Conc. 34.7 g/dL (33.0-37.0); Mean Corpuscular Hgb 30.2 pg (27.0-31.0); Mean Corpuscular Volume 87.2 fL (81.0-99.0); Mean Platelet Volume 8.8 fL (7.4-10.4); Platelet Count 407 10^3/uL (130-400); Red Blood Cell Count 3.67 10^6/uL (4.20-5.40); Red Cell Dist. Width 13.7 % (11.5-14.5); White Blood Cell Count 20.4 10^3/uL (4.8-10.8)
[2023-10-29] MEDS: BACTROBAN 2% OINTMENT 1 APPLIC NASAL ×2 (08:22→21:17)
[2023-10-29 08:50] LABS: Blood Urea Nitrogen 38 mg/dl (7-17); Carbon Dioxide 22 mmol/L (22-30); Chloride 111 mmol/L (98-107); Glucose 127 mg/dl (70-99); Potassium 3.9 mmol/L (3.5-5.1); Sodium 141 mmol/L (135-145); eGFR > 60.00
[2023-10-29] MEDS: MORPHINE SULFATE 2 MG IV ×2 (08:56→15:46)
--- NOTE | 2023-10-29 10:37 | W.PN.HOSP.TC ---
Today's Communication/Plan
-
Recoveting well from surgery. Significant dememtia.
Assessment / Plan
Assessment / Plan
HPI:�77y F with PMH significant for hypertension, dementia and recent fall with SDH who presented to ED for evaluation of R hip / low back pain.�
Patient recently suffered a fall at her NH on 10/14/23.� She was evaluated in the ED here at that time and found to have SDH.�She was transferred to [facility] for evaluation. Family ultimately opted for comfort measures.�No intervention was performed.
Patient returned to her NH and suffered a second fall on 10/24/23.
She appeared to have increased pain in the low back / R hip following this and a hip x-ray was performed. This showed a R femoral fracture and patient was sent to the ED for evaluation.
In the ED, patient complained of pain from BP cuff squeezing, but denied any other complaints at this time. She was unable to tell why she is here and she does not recall falling.
History from patient is very limited due to underlying dementia.
Initial Exam:
Gen: NAD, opens eyes to voice and then is awake and alert but is not answering questions. Aside from periorbital ecchymoses, normocephalic atraumatic
Eyes: EOMI, PERRLA, no scleral icterus.
Neck: supple.
CV: RRR, +S1/S2, no m/r/g.
Resp: CTAB, no rales, wheezes, or rhonchi.
Abd: +BS, soft, NT, ND
Skin: No rashes.
Neuro: CN 2-12 intact, non-focal.
Psych: Normal mood and affect.
1. Right Hip Fracture
-Unclear when this took place as - in retrospect - it may have been present on 10/14 images.
-Cont Pain control with Tylenol, Tramadol, Morphine PRN.�Cont bowel regimen.
-s/p OR for R hemiarthroplasty. recoveing well.
-to rehab/NH when OK with ortho
2. SDH
-s/p fall on 10/14/23 with SDH and subsequent admission to [facility].
-No intervention performed. Family declined any neurosurgical intervention at time of original diagnosis.
3. Essential hypertension:
-current BPs acceptable off antihypertensives at this time
-continue current plan
4. Senile Dementia with Behavioral Disturbance
-awake, minimally conversant, not orientated at baseline at baseline
-s/p Ativan and Seroquel
-Cont Zyprexa HS
5. Possible UTI with Leukocytosis:
-UCx contaminated, BCxs NGTD
-cont Rocephin for now
-A component of the patient's leukocytosis is likely reactive. Also note patient had a leukocytosis of 17.1 on October 14, 2023.
Code: DNR
DVTp SCDs
Anticipated Discharge: 24 - 48 hours
Subjective/Interval History
-
Date of Service: October 29, 2023
Objective Data
-
Labs:
Laboratory Results
10/29/23
07:40
WBC 20.4 H
Hgb 11.1 L
Hct 32.0 L
Plt Count 407 H
Sodium 141
Potassium 3.9
Chloride 111 H
Carbon Dioxide 22
BUN 38 H
Creatinine 0.8
Glucose 127 H
Calcium 8.0 L
Vital Signs:
Vital Signs
Temp Pulse Resp BP Pulse Ox
98 F 84 16 146/84 98
10/29/23 07:53 10/29/23 07:53 10/29/23 07:53 10/29/23 07:53 10/29/23 07:53
I&O
10/28/23 10/29/23 10/30/23
06:59 06:59 06:59
Intake Total 730 / 730
Output Total 900 / 900
Balance -170 / -170
[2023-10-29] MEDS: DILAUDID 0.25 MG IV (11:45)
[2023-10-29] MEDS: ZYPREXA 7.5 MG PO (21:16)
[2023-10-29] MEDS: COLACE PO (21:57)
[2023-10-29] MEDS: SENOKOT PO (21:58)
[2023-10-30] VITALS: BP 144/77
[2023-10-30] MEDS: ULTRAM 50 MG PO ×2 (05:16→14:11)
[2023-10-30] MEDS: TYLENOL 650 MG PO ×5 (05:17→19:51)
[2023-10-30] MEDS: FLUSH (NSS) 2 FLUSH IV (05:35)
[2023-10-30] MEDS: MORPHINE SULFATE 2 MG IV (05:36)
--- NOTE | 2023-10-30 06:27 | PTCARENOTE ---
pt assisted to drink fluids multiple times through shift. frequent mouth care provided. bladder scan followed through night- 150 at 2100, 300 at 0300 and 400 at 0500. after conversation with RN IMCU, orders to insert Sultana cath for acute retention. 16
fr sultana inserted with 2nd RN present without complications. Sultana returned 350 asiya urine. 2 doses of tramadol given through night, however in severe pain this morning, IV morphine given after sultana insertion. pt now resting comfortably, bed alarm
engaged, bed low and locked
[2023-10-30 07:20] VITALS: BP 124/66
[2023-10-30 08:18] LABS: Hematocrit 32.7 % (37.0-47.0); Mean Corp Hgb Conc. 33.6 g/dL (33.0-37.0); Mean Corpuscular Hgb 29.6 pg (27.0-31.0); Mean Corpuscular Volume 88.1 fL (81.0-99.0); Mean Platelet Volume 8.8 fL (7.4-10.4); Platelet Count 457 10^3/uL (130-400); Red Blood Cell Count 3.71 10^6/uL (4.20-5.40); White Blood Cell Count 19.1 10^3/uL (4.8-10.8)
[2023-10-30] MEDS: SENOKOT 17.1999999999999993 MG PO ×2 (08:22→19:51)
[2023-10-30] MEDS: ROCEPHIN 1000 MG IV (08:22)
[2023-10-30] MEDS: MIRALAX 17 GRAMS PO (08:22)
[2023-10-30] MEDS: STERILE WATER FOR INJECTION 10 ML IV (08:22)
[2023-10-30] MEDS: ASPIRIN 325 MG PO (08:23)
[2023-10-30] MEDS: PROTONIX 40 MG PO (08:23)
[2023-10-30 08:37] LABS: Blood Urea Nitrogen 40 mg/dl (7-17); Calcium 8.8 mg/dl (8.4-10.2); Carbon Dioxide 26 mmol/L (22-30); Chloride 108 mmol/L (98-107); Glucose 123 mg/dl (70-99); Potassium 3.8 mmol/L (3.5-5.1); Sodium 142 mmol/L (135-145); eGFR > 60.00
[2023-10-30] MEDS: COLACE PO ×2 (08:47→19:32)
--- NOTE | 2023-10-30 09:34 | W.PN.UPDATE ---
Update Note
Progress Note Update
Ms. Robin is POD2 following her right hip hemiarthroplasty performed by Dr. Rodgers. She is resting comfortably in bed this morning. She is confused per baseline, but denies pain in her hip.
Directed exam of the right lower extremity reveals Aquacel dressing clean, dry and intact. No tenderness to palpation about the hip. Thigh soft and compressible. Calf soft and nontender. Patient able to wiggle toes, plantar and dorsiflex ankle.
Neurovascularly intact distally. VSS.
Hgb 11.0.
77 yo F POD 2 right hip hemiarthroplasty under the direction of Dr. Rodgers
--WBAT to RLE with walker. THPs until 6-8 weeks post-op. We appreciate the assistance of PT/OT.
--Recommend ASA 325 mg daily x4 weeks for DVT ppx.
--Continue current pain management regimen. Ice and elevation for edema control.
--Hgb 11.0 this AM. Continue to monitor.
--Surgical dressing to remain in place until 7-10 days post-op. Staple removal at 2 weeks post-op (office or SNF). If removed at SNF, outpatient ortho follow up at 4 weeks.
--Case management consult for discharge planning.
--Patient is stable post-operatively from an orthopedic standpoint. Orthopedics will sign off for the time being. Please reach out with any additional questions or concerns.
--- NOTE | 2023-10-30 11:59 | W.PN.HOSP.TC ---
Today's Communication/Plan
-
d/c
Assessment / Plan
Assessment / Plan
HPI:�77y F with PMH significant for hypertension, dementia and recent fall with SDH who presented to ED for evaluation of R hip / low back pain.�
Patient recently suffered a fall at her NH on 10/14/23.� She was evaluated in the ED here at that time and found to have SDH.�She was transferred to [facility] for evaluation. Family ultimately opted for comfort measures.�No intervention was performed.
Patient returned to her NH and suffered a second fall on 10/24/23.
She appeared to have increased pain in the low back / R hip following this and a hip x-ray was performed. This showed a R femoral fracture and patient was sent to the ED for evaluation.
In the ED, patient complained of pain from BP cuff squeezing, but denied any other complaints at this time. She was unable to tell why she is here and she does not recall falling.
History from patient is very limited due to underlying dementia.
Gen: NAD, Awake and alert
Eyes: EOMI, PERRLA, no scleral icterus. Periorbital ecchymoses
Neck: supple.
CV: RRR, +S1/S2, no m/r/g.
Resp: CTAB, no rales, wheezes, or rhonchi.
Abd: +BS, soft, NT, ND
Skin: No rashes.
Neuro: CN 2-12 intact, non-focal.
Psych: Normal mood and affect.
Right Hip Fracture:
-Unclear when this took place as - in retrospect - it may have been present on 10/14 images.
-Cont Pain control with Tylenol, Tramadol, Morphine PRN.�Cont bowel regimen.
-s/p Right hip hemiarthroplasty on 10/28/23
-WBAT to RLE with walker
-cont ASA 325
SDH:
-s/p fall on 10/14/23 with SDH and subsequent admission to [facility].
-No intervention performed. Family declined any neurosurgical intervention at time of original diagnosis.
Essential hypertension:
-current BPs acceptable off antihypertensives at this time
Senile Dementia with Behavioral Disturbance
-awake, minimally conversant, not orientated at baseline at baseline
-s/p Ativan and Seroquel
-Cont Zyprexa HS
Possible UTI with Leukocytosis:
-UCx contaminated, BCxs NGTD
-completed 5 days of Rocephin, stop abx
-A component of the patient's leukocytosis is likely reactive. Also note patient had a leukocytosis of 17.1 on October 14, 2023 (possibly chronic leukocytosis).
DNR/SCDs
Medically clear for discharge. Case management aware.
Anticipated Discharge: Today
Subjective/Interval History
-
Date of Service: October 30, 2023
Denies CP/SOB.
Objective Data
-
Labs:
Laboratory Results
10/30/23
07:58
WBC 19.1 H
Hgb 11.0 L
Hct 32.7 L
Plt Count 457 H
Sodium 142
Potassium 3.8
Chloride 108 H
Carbon Dioxide 26
BUN 40 H
Creatinine 0.8
Glucose 123 H
Calcium 8.8
Vital Signs:
Vital Signs
Temp Pulse Resp BP Pulse Ox
98.1 F 87 18 124/66 95
10/30/23 07:20 10/30/23 07:20 10/30/23 07:20 10/30/23 07:20 10/30/23 08:00
I&O
10/29/23 10/30/23 10/31/23
06:59 06:59 06:59
Intake Total 730 / 730 480 / 480 60 / 60
Output Total 900 / 900 1550 / 1550
Balance -170 / -170 -1070 / -1070 60 / 60
--- NOTE | 2023-10-30 12:44 | CM ---
Chart reviewed and physical therapy are recommending skilled placement patient was admitted from [facility]. Call placed to patient's brother to discuss skilled placement.
Plan; PT/OT recommending skilled placement, call placed to brother to review skilled placement options.
[2023-10-30 15:30] VITALS: BP 138/77
[2023-10-30] MEDS: ZYPREXA 7.5 MG PO (22:05)
[2023-10-30 23:10] VITALS: BP 136/66
[2023-10-30] MEDS: TYLENOL PO (23:52)
[2023-10-31] MEDS: TYLENOL PO ×2 (04:25→16:24)
[2023-10-31 05:11] LABS: Hematocrit 31.5 % (37.0-47.0); Hemoglobin 10.9 g/dL (12.0-16.0); Mean Corp Hgb Conc. 34.6 g/dL (33.0-37.0); Mean Corpuscular Hgb 30.4 pg (27.0-31.0); Mean Platelet Volume 8.8 fL (7.4-10.4); Platelet Count 399 10^3/uL (130-400); Red Blood Cell Count 3.58 10^6/uL (4.20-5.40); Red Cell Dist. Width 13.8 % (11.5-14.5)
[2023-10-31 05:32] LABS: Blood Urea Nitrogen 29 mg/dl (7-17); Calcium 8.5 mg/dl (8.4-10.2); Carbon Dioxide 27 mmol/L (22-30); Chloride 110 mmol/L (98-107); Glucose 106 mg/dl (70-99); Sodium 142 mmol/L (135-145); eGFR > 60.00
[2023-10-31 05:38] LABS: Potassium 3.9 mmol/L (3.5-5.1)
[2023-10-31 07:36] VITALS: BP 105/80
[2023-10-31] MEDS: TYLENOL 650 MG PO ×3 (07:38→19:32)
[2023-10-31] MEDS: MIRALAX 17 GRAMS PO (07:38)
[2023-10-31] MEDS: ASPIRIN 325 MG PO (07:38)
[2023-10-31] MEDS: PROTONIX 40 MG PO (07:38)
[2023-10-31] MEDS: SENOKOT 17.1999999999999993 MG PO ×2 (07:38→19:32)
[2023-10-31] MEDS: COLACE PO ×2 (07:39→19:32)
--- NOTE | 2023-10-31 07:58 | W.PN.HOSP.TC ---
Today's Communication/Plan
-
d/c
Assessment / Plan
Assessment / Plan
HPI:�77y F with PMH significant for hypertension, dementia and recent fall with SDH who presented to ED for evaluation of R hip / low back pain.�
Patient recently suffered a fall at her NH on 10/14/23.� She was evaluated in the ED here at that time and found to have SDH.�She was transferred to [facility] for evaluation. Family ultimately opted for comfort measures.�No intervention was performed.
Patient returned to her NH and suffered a second fall on 10/24/23.
She appeared to have increased pain in the low back / R hip following this and a hip x-ray was performed. This showed a R femoral fracture and patient was sent to the ED for evaluation.
In the ED, patient complained of pain from BP cuff squeezing, but denied any other complaints at this time. She was unable to tell why she is here and she does not recall falling.
History from patient is very limited due to underlying dementia.
Gen: NAD, Awake and alert
Eyes: remains EOMI, PERRLA, no scleral icterus. Periorbital ecchymoses
Neck: supple.
CV: remains RRR, +S1/S2, no m/r/g.
Resp: remains CTAB, no rales, wheezes, or rhonchi.
Abd: +BS, soft, NT, ND
Skin: No rashes.
Neuro: CN 2-12 intact, non-focal.
Psych: Normal mood and affect.
Right Hip Fracture:
-Unclear when this took place as - in retrospect - it may have been present on 10/14/23 images.
-Cont Pain control with Tylenol, Tramadol, Morphine PRN.�Cont bowel regimen.
-s/p Right hip hemiarthroplasty on 10/28/23
-WBAT to RLE with walker
-cont ASA 325
SDH:
-s/p fall on 10/14/23 with SDH and subsequent admission to [facility].
-No intervention performed. Family declined any neurosurgical intervention at time of original diagnosis.
Essential hypertension:
-current BPs acceptable off antihypertensives at this time
Senile Dementia with Behavioral Disturbance
-awake, minimally conversant, not orientated at baseline at baseline
-s/p Ativan and Seroquel
-Cont Zyprexa HS
Possible UTI with Leukocytosis:
-UCx contaminated, BCxs NGTD
-completed 5 days of Rocephin
-A component of the patient's leukocytosis is likely reactive. Also note patient had a leukocytosis of 17.1 on October 14, 2023 (possibly chronic leukocytosis).
DNR/SCDs
Remains medically clear for discharge. Case management aware.
Anticipated Discharge: Today
Subjective/Interval History
-
Date of Service: October 31, 2023
Patient does not offer any acute complaints.
Objective Data
-
Labs:
Laboratory Results
10/31/23
04:52
WBC 16.0 H
Hgb 10.9 L
Hct 31.5 L
Plt Count 399
Sodium 142
Potassium 3.9
Chloride 110 H
Carbon Dioxide 27
BUN 29 H
Creatinine 0.7
Glucose 106 H
Calcium 8.5
Vital Signs:
Vital Signs
Temp Pulse Resp BP Pulse Ox
98.6 F 85 16 105/80 97
10/31/23 07:36 10/31/23 07:36 10/31/23 07:36 10/31/23 07:36 10/31/23 07:36
I&O
10/30/23 10/31/23 11/01/23
06:59 06:59 06:59
Intake Total 480 / 480 720 / 720
Output Total 1550 / 1550 725 / 725
Balance -1070 / -1070 -5 / -5
[2023-10-31 11:20] VITALS: BP 121/64; PULSE 71; O2SAT 94
[2023-10-31 11:23] VITALS: BP 121/64; PULSE 71; O2SAT 95
[2023-10-31 15:52] VITALS: BP 128/66
--- NOTE | 2023-10-31 16:19 | CM ---
Patient has been accepted to [facility]. Insurance auth required and will be initiated. Spoke to son and [id number] and they have chosen [facility] and are in agreement with discharge plan of care.
[2023-10-31] MEDS: ZYPREXA PO ×2 (20:54→21:33)
[2023-10-31 22:44] VITALS: BP 108/73
[2023-11-01] MEDS: TYLENOL PO ×2 (00:18→03:23)
[2023-11-01 08:00] VITALS: BP 130/77
--- NOTE | 2023-11-01 08:20 | CM ---
Addendum entered by Rell Thakur 11/01/23 10:57:
Received call from [employer] construction representative, Regan, who has received auth request and is requesting clinicals be faxed to #[phone], . Confirmation # is [id number]. Records have been faxed for review.
Original Note:
Patient has been accepted to [facility] for mcc and rehab services. Insurance auth with [employer] is required. This case management assistant called and spoke with [employer] construction representative, Mariam Smith, and initiated auth process. Pending reference # is
[id number]. This CM requested # to send clinical information. Mariam said that the process is the case will be assigned to a nurse and then the nurse will call CM with phone and fax # and determine if clinicals are needed. [employer] is attempting to
have reviewers utilize the portal instead of requesting records from facilities. She is aware does not use the portal. Will await call from reviewer RN.
[2023-11-01] MEDS: MIRALAX 17 GRAMS PO (08:58)
[2023-11-01] MEDS: COLACE PO (09:00)
[2023-11-01] MEDS: ASPIRIN 325 MG PO (09:00)
[2023-11-01] MEDS: TYLENOL 650 MG PO ×3 (09:01→16:47)
[2023-11-01] MEDS: PROTONIX 40 MG PO (09:01)
[2023-11-01] MEDS: SENOKOT 17.1999999999999993 MG PO (09:01)
--- NOTE | 2023-11-01 09:40 | W.PN.HOSP.TC ---
Addendum entered and electronically signed by Clifton Diana MD 11/01/23 12:36:
Total time spent on d/c = 31 min. This included today's physical exam, progress note, review of laboratory and diagnostic data, preparation of discharge documents and prescriptions, and discussions about the pt's hospital course and discharge plan
with the patient and other medical insurance claims specialist involved in the patient's care.
Original Note:
Today's Communication/Plan
-
d/c
Assessment / Plan
Assessment / Plan
HPI:�77y F with PMH significant for hypertension, dementia and recent fall with SDH who presented to ED for evaluation of R hip / low back pain.�
Patient recently suffered a fall at her NH on 10/14/23.� She was evaluated in the ED here at that time and found to have SDH.�She was transferred to [facility] for evaluation. Family ultimately opted for comfort measures.�No intervention was performed.
Patient returned to her NH and suffered a second fall on 10/24/23.
She appeared to have increased pain in the low back / R hip following this and a hip x-ray was performed. This showed a R femoral fracture and patient was sent to the ED for evaluation.
In the ED, patient complained of pain from BP cuff squeezing, but denied any other complaints at this time. She was unable to tell why she is here and she does not recall falling.
History from patient is very limited due to underlying dementia.
Gen: NAD, Awake and alert
Eyes: Continues to remain EOMI, PERRLA, no scleral icterus. Periorbital ecchymoses
Neck: supple.
CV: Continues to remain RRR, +S1/S2, no m/r/g.
Resp: Continues to remain CTAB, no rales, wheezes, or rhonchi.
Abd: +BS, soft, NT, ND
Skin: No rashes.
Neuro: CN 2-12 intact, non-focal.
Psych: Normal mood and affect.
Right Hip Fracture:
-Unclear when this took place as - in retrospect - it may have been present on 10/14/23 images.
-Cont Pain control with Tylenol, Tramadol, Morphine PRN.�Cont bowel regimen.
-s/p Right hip hemiarthroplasty on 10/28/23
-WBAT to RLE with walker
-cont ASA 325
SDH:
-s/p fall on 10/14/23 with SDH and subsequent admission to [facility].
-No intervention performed. Family declined any neurosurgical intervention at time of original diagnosis.
Essential hypertension:
-current BPs acceptable off antihypertensives at this time
Senile Dementia with Behavioral Disturbance
-awake, minimally conversant, not orientated at baseline at baseline
-s/p Ativan and Seroquel
-Cont Zyprexa HS
Possible UTI with Leukocytosis:
-UCx contaminated, BCxs NGTD
-completed 5 days of Rocephin
-A component of the patient's leukocytosis is likely reactive. Also note patient had a leukocytosis of 17.1 on October 14, 2023 (possibly chronic leukocytosis).
DNR/SCDs
Continues to remain medically clear for discharge. Case management aware.
Anticipated Discharge: Today
Subjective/Interval History
-
Date of Service: November 01, 2023
Denies chest pain or shortness of breath.
Objective Data
-
Vital Signs:
Vital Signs
Temp Pulse Resp BP Pulse Ox
97.7 F 76 18 130/77 97
11/01/23 08:00 11/01/23 08:00 11/01/23 08:00 11/01/23 08:00 11/01/23 08:00
I&O
10/31/23 11/01/23 11/02/23
06:59 06:59 06:59
Intake Total 720 / 720 180 / 180
Output Total 725 / 725 800 / 800
Balance -5 / -5 -620 / -620
[2023-11-01 11:39] VITALS: BP 150/88; PULSE 78; O2SAT 96
[2023-11-01 11:43] VITALS: BP 150/88; PULSE 78; O2SAT 97
--- NOTE | 2023-11-01 12:40 | W.DCSUMMARY ---
Discharge Summary
Discharge Data
Date of Admission: 10/26/23
Date of Discharge: 11/01/23
-
Pending Results: No
Hospital Course
Primary diagnoses:
Right Hip Fracture s/p Right hip hemiarthroplasty on 10/28/23
Possible urinary tract infect
Secondary diagnoses:
h/o recent subdural hematoma
Essential hypertension
Senile Dementia with Behavioral Disturbance
Consultants:
Orthopedics
Imaging:
R hip Xray: Right femoral neck fracture.
R hand/wrist Xray: There is no acute fracture, dislocation, or subluxation. Degenerative changes are seen most prominent about the first carpal-metacarpal joint with joint space narrowing. No radiopaque soft tissue abnormality is seen.
CT A/P: Fracture, neck, proximal right femur. Unopacified and incompletely distended urinary bladder, markedly limited in evaluation. Cannot exclude some mild perivesical stranding. Suggest correlation with urinalysis for possible infection. No
findings to suggest obstructive uropathy bilaterally. Small hiatal hernia. No intestinal obstruction or free air.
77-year-old female who presented with chief complaints of right hip and low back pain as outlined in the H&P done on admission. Hospital course per problem list:
Right Hip Fracture: It is unclear when this took place as, in retrospect, it may have been present on 10/14/23 images. Imaging above. Patient underwent right hip hemiarthroplasty in October 28, 2023 and tolerated the procedure well. She can be
weightbearing as tolerated to right lower extremity with walker. She is on aspirin for DVT prophylaxis at the time of discharge at the recommendation of orthopedics.
Possible UTI with Leukocytosis: The patient's urine culture was contaminated and blood cultures were no growth. She completed 5 days of empiric Rocephin while hospitalized. Of note, a component of the patient's leukocytosis was likely reactive.�
Also note patient had a leukocytosis of 17.1 on October 14, 2023 (possibly chronic leukocytosis).
Discharge Plan
-
Patient Disposition: Skilled Nursing/SNF
Discharge Diagnosis/Procedures: Right Hip Fracture s/p Right hip hemiarthroplasty on 10/28/23, h/o recent subdural hematoma, possible urinary tract infect
Condition: Good
Diet: Other diet
Additional Diets: IDSSI 6, small and bite sized
Activity: With assistance
Driving Restrictions: No driving
Bathing Restrictions: None
Blood Work: BMP and CBC in 1 week
Referrals:
PRIVATE,PHYSICIAN [Family Provider] - in less than 1 week
Prescriptions:
New
sennosides [Senna Lax] 8.6 mg Tablet
17.2 mg PO BID Qty: 0 0RF
acetaminophen 325 mg Tablet
650 mg PO Q4HWA Qty: 0 0RF
polyethylene glycol 3350 [HealthyLax] 17 gram Powder In Packet
17 g PO DAILY Qty: 0 0RF
aspirin 325 mg Tablet
325 mg PO DAILY Qty: 0 0RF
tamsulosin 0.4 mg Capsule
0.4 mg PO DAILYPRN PRN (Reason: bladder scan volume > 400 mL) Qty: 0 0RF
docusate sodium 100 mg Capsule
100 mg PO BID Qty: 0 0RF
Continued
atorvastatin [Lipitor] 40 mg Tablet
40 mg PO HS
acetaminophen [Tylenol] 325 mg Tablet
650 mg PO Q4HPRN PRN (Reason: mild pain)
cyanocobalamin (vitamin B-12) 1,000 mcg Tablet
1,000 mcg PO DAILY
therapeutic multivitamin Tablet
1 tab PO DAILY
melatonin 3 mg Tablet
3 mg PO HS
olanzapine [Zyprexa] 7.5 mg Tablet
7.5 mg PO HS
amlodipine [Norvasc] 10 mg Tablet
10 mg PO DAILY
pantoprazole [Protonix] 40 mg Tablet,Delayed Release (Dr/Ec)
40 mg PO DAILY
Discontinued
aspirin 81 mg Tablet,Chewable
81 mg PO DAILY
Discharge Orders:
Discharge Patient (As Directed); Ordered 11/01/23
Ordered By: Clifton Diana
--- NOTE | 2023-11-01 13:24 | CM ---
Patient has been medically cleared for discharge to [facility] skilled services and rehab. [id number] and son notified. Nurse to nurse report # [phone] and . Transport to be scheduled.
Insurance auth has been obtained: Auth # [id number] and Reference # [id number]. Approved for 3 days, 11/01/23 to 11/03/23 with LCD 11/03/23 and NRD 11/03/23. [facility] contact is Charo @ [phone] and .
[2023-11-01 16:00] VITALS: BP 166/91
[2023-11-01 16:56] VITALS: BP 141/85
== END 2023-11-01 18:08 | DRG 522 ==
LOC: 2 SOUTH 06:25
PROVIDERS: Internal Medicine; ADMITTING PHYSICIAN Hospitalist; ATTENDING PHYSICIAN Internal Medicine; CONSULT PHYSICIAN Orthopaedic Surgery; EMERGENCY PHYSICIAN Student in an Organized Health Care Education/Training Program
PROC: 0SRR0J9 Replacement of Right Hip Joint, Femoral Surface with Synthetic Substitute, Cemented, Open Approach (ICD-10-PCS; 2023-10-28)
DX: S72.001A Fracture of unspecified part of neck of right femur, initial encounter for closed fracture (principal); F03.918 Unspecified dementia, unspecified severity, with other behavioral disturbance; N39.0 Urinary tract infection, site not specified; I10 Essential (primary) hypertension; E78.5 Hyperlipidemia, unspecified; R29.6 Repeated falls; W19.XXXA Unspecified fall, initial encounter; Y92.9 Unspecified place or not applicable; R30.0 Dysuria; M79.641 Pain in right hand; M54.50 Low back pain, unspecified; M25.531 Pain in right wrist; D72.829 Elevated white blood cell count, unspecified; K59.00 Constipation, unspecified; Z66 Do not resuscitate; Z88.0 Allergy status to penicillin; Z91.81 History of falling; Z79.82 Long term (current) use of aspirin
CPT/HCPCS: 73110; 73130; 73502; 74176; 80048; 80053; 81003; 81015; 83735; 85025; 85027; 85610; 85730; 86850; 86900; 86901; 87040; 87070; 87086; 92610; 96374; 97110; 97163; 97167; 97530; 97535; 99285; C1713; C1776

== ENCOUNTER → 2023-11-09 12:09 | Outpatient (REF) | payer OTHER, MEDICARE, SELFPAY ==
[2023-11-09 13:28] LABS: % Basophils 0.4 % (0-2); % Immature Granulocytes 0.6 % (0-0.5); % Lymphocytes 17.5 % (20.5-51.1); % Neutrophils 71.5 % (42.2-75.2); Absolute Basophils 0.1 10^3/uL (0-0.2); Absolute Eosinophils 0.4 10^3/uL (0-0.7); Absolute Immature Granulocytes 0.1 10^3/uL (0-0.05); Absolute Lymphocytes 2.3 10^3/uL (1.2-3.4); Absolute Monocytes 0.9 10^3/uL (0.1-0.6); Absolute Neutrophils 9.4 10^3/uL (1.4-6.5); Hematocrit 33.5 % (37.0-47.0); Hemoglobin 11.1 g/dL (12.0-16.0); Mean Corp Hgb Conc. 33.1 g/dL (33.0-37.0); Mean Corpuscular Volume 90.5 fL (81.0-99.0); Mean Platelet Volume 9.5 fL (7.4-10.4); Nucleated Red Blood Cells % 0 %; Platelet Count 530 10^3/uL (130-400); Red Cell Dist. Width 14.5 % (11.5-14.5); White Blood Cell Count 13.2 10^3/uL (4.8-10.8)
[2023-11-09 13:35] LABS: Blood Urea Nitrogen 22 mg/dl (7-17); Calcium 8.5 mg/dl (8.4-10.2); Carbon Dioxide 26 mmol/L (22-30); Chloride 105 mmol/L (98-107); Glucose 89 mg/dl (70-99); Potassium 3.9 mmol/L (3.5-5.1); Sodium 137 mmol/L (135-145); eGFR > 60.00
== END ==
LOC: OLABP 12:09
PROVIDERS: ATTENDING PHYSICIAN Student in an Organized Health Care Education/Training Program
DX: S72.001D Fracture of unspecified part of neck of right femur, subsequent encounter for closed fracture with routine healing (principal); I10 Essential (primary) hypertension; F03.918 Unspecified dementia, unspecified severity, with other behavioral disturbance; S06.5XAD Traumatic subdural hemorrhage with loss of consciousness status unknown, subsequent encounter
CPT/HCPCS: 36415; 80048; 85025

== ENCOUNTER 2024-01-29 05:27 | Emergency (ER) | payer OTHER, MEDICARE, SELFPAY ==
[2024-01-29 05:28] VITALS: BP 142/81
--- NOTE | 2024-01-29 05:45 | ED.GENMED ---
History of Present Illness
<Robert Stack MD - Last Filed: 01/30/24 07:38>
General
Chief Complaint: Head Injury
Source: patient, ambulance crew and alf
Exam Limitations: dementia
Time Seen by Provider: 01/29/24 05:43
Nursing documentation reviewed up to this point in time: agreed with
Travel History
Have you had any contact with someone who has COVID-19?: No
Do you have any symptoms of coronavirus? Fever > 100 degrees, chills, cough, shortness of breath, sore throat, loss of taste or smell, muscle aches, or headache?: No
History of Present Illness
History of Present Illness:
Patient with history of dementia, presents ED from alf after witnessed head injury, shortly prior to arrival. Per transfer note and paramedics, patient rolled out of her bed and injured her head. Denies loss of consciousness. No other
injuries noted per report. Patient does not offer any additional information.
Past History
<Robert Stack MD - Last Filed: 01/30/24 07:38>
Past History
ED Past Medical History: HTN, Psychiatric and Other (dementia)
Social History
Tobacco: Non-smoker
Alcohol: None
Review of Systems
<Robert Stack MD - Last Filed: 01/30/24 07:38>
Review of Systems
Unable to obtain full review of systems at this time due to: dementia
Other source history: alf and ambulance crew
All Other Systems: Not applicable
Phy Exam
<Robert Stack MD - Last Filed: 01/30/24 07:38>
Physical Exam
Physical Exam:
Physical Exam
General: mild distress, not acutely ill. afebrile
Head: an approx 3cm horizontal laceration above right eyebrow, without active bleeding.
Neck: supple. normal range of motion.
Lungs: no acute respiratory distress. chest wall nontender to palpation.
Abdomen: normal bowel sounds. not tender.
Neuro: alert and oriented x1. no focal neurological deficits
Skin: no rash
Psychiatric: pleasantly confused
Extremities: no edema. no calf tenderness.
Course
<Robert Stack MD - Last Filed: 01/30/24 07:38>
Orders/Labs/Results
Orders:
Orders
01/29/24 05:[address] [CT Head W/o Iv Contrast] Urgent
Comment:
Reason For Exam: fall with head strike
01/29/24 05:43
Acetaminophen [Tylenol] 650 mg PO NOW STA
01/29/24 06:19
Electrocardiogram (*1) Urgent
Reason for Study: Other
Other Reason for Exam: trauma
CT Cervical Spine W/o Iv Contr Urgent
Comment:
Reason For Exam: fall sdh
Cardiac Monitoring- Treatment ONCE
EKG- Treatment ONCE
01/29/24 06:40
Complete Blood Count/With Diff Urgent
Comprehensive Metabolic Panel Urgent
Abnormal Lab Results
01/29/24
06:40
WBC 12.6 H 10^3/uL
(4.8-10.8)
RDW 14.6 H %
(11.5-14.5)
Abs Immat Gran (auto) 0.1 H 10^3/uL
(0-0.05)
Absolute Neuts (auto) 9.7 H 10^3/uL
(1.4-6.5)
Absolute Monos (auto) 1.0 H 10^3/uL
(0.1-0.6)
Neutrophils % 77.1 H %
(42.2-75.2)
Lymphocytes % 12.3 L %
(20.5-51.1)
BUN 18 H mg/dl
(7-17)
Total Protein 6.1 L g/dl
(6.3-8.2)
01/29/24 06:40
01/29/24 06:40
Vital Signs
Initial and Last Documented VS:
Initial Vital Signs
Temp Pulse Resp BP Pulse Ox
97.7 F 77 18 142/81 98
01/29/24 05:28 01/29/24 05:28 01/29/24 05:28 01/29/24 05:28 01/29/24 05:28
Last Documented Vital Signs
Temp Pulse Resp BP Pulse Ox
97.7 F 66 18 157/76 96
01/29/24 07:29 01/29/24 07:29 01/29/24 07:29 01/29/24 07:29 01/29/24 07:29
<Brian Juan, - Last Filed: 01/29/24 06:28>
Orders/Labs/Results
Orders:
Orders
01/29/24 05:[address] [CT Head W/o Iv Contrast] Urgent
Comment:
Reason For Exam: fall with head strike
01/29/24 05:43
Acetaminophen [Tylenol] 650 mg PO NOW STA
01/29/24 06:19
Electrocardiogram (*1) Urgent
Reason for Study: Other
Other Reason for Exam: trauma
CT Cervical Spine W/o Iv Contr Urgent
Comment:
Reason For Exam: fall sdh
Cardiac Monitoring- Treatment ONCE
EKG- Treatment ONCE
01/29/24 06:40
Complete Blood Count/With Diff Urgent
Comprehensive Metabolic Panel Urgent
Abnormal Lab Results
01/29/24
06:40
WBC 12.6 H 10^3/uL
(4.8-10.8)
RDW 14.6 H %
(11.5-14.5)
Abs Immat Gran (auto) 0.1 H 10^3/uL
(0-0.05)
Absolute Neuts (auto) 9.7 H 10^3/uL
(1.4-6.5)
Absolute Monos (auto) 1.0 H 10^3/uL
(0.1-0.6)
Neutrophils % 77.1 H %
(42.2-75.2)
Lymphocytes % 12.3 L %
(20.5-51.1)
BUN 18 H mg/dl
(7-17)
Total Protein 6.1 L g/dl
(6.3-8.2)
01/29/24 06:40
01/29/24 06:40
Vital Signs
Initial and Last Documented VS:
Initial Vital Signs
Temp Pulse Resp BP Pulse Ox
97.7 F 77 18 142/81 98
01/29/24 05:28 01/29/24 05:28 01/29/24 05:28 01/29/24 05:28 01/29/24 05:28
Last Documented Vital Signs
Temp Pulse Resp BP Pulse Ox
97.7 F 66 18 157/76 96
01/29/24 07:29 01/29/24 07:29 01/29/24 07:29 01/29/24 07:29 01/29/24 07:29
Procedures
<Robert Stack MD - Last Filed: 01/30/24 07:38>
Laceration Closure
Right Lateral Forehead:
Status of Wound: clean
Size of Wound in cm: 3
Description of Wound Edges: sharp
Preparation: cleaned with SurClens
Anesthesia: 1% Lidocaine with epi
Revision/Debridement: routine- no revision
Type of Closure: single layer closure
Skin Closure Material: 6-0 nylon
Number of sutures: 4
<Robert Stack MD - Last Filed: 01/30/24 07:38>
MDM/Problems Addressed
MDM/Problems Addressed:
Wound well approximated. No other injuries noted on exam.
CT head pending
<Brian Juan DO - Last Filed: 01/29/24 06:28>
*Radiology
Radiology exam reviewed: radiology read reviewed
*Pulse Oximetry
Patient hypoxic: no
*Critical Care Note
Total Time (30-74mins, 75-104mins- exclusive of procedures): 31
<Brian Juan DO - Last Filed: 01/29/24 06:28>
Update Note
Update Note:
6 AM ER attending signout pending CT of the head call from vision positive subdural
On exam patient pleasantly confused moves all extremities will check CT of the head labs, call placed to 2 next of kin's listed
Discussed with genna Chawla she is in agreement plan of care patient has been at [facility] before we will go there again
ED Attending Note
<Robert Stack MD - Last Filed: 01/30/24 07:38>
-
Portions of this chart may have been created with voice recognition software.� Occasional wrong word or��sound alike� substitutions may have occurred due to the inherent limitations of voice recognition software.
Discharge Plan
Departure
Patient Disposition: Acute Care Hospital
Date of Disposition: 01/29/24
Time of Disposition: 06:05
Patient with high blood pressure during this ER visit?: Yes
Condition: Serious
Covid-19: Not Applicable
Discharge Problem:
Forehead laceration, SDH (subdural hematoma)
Instructions: Head Injury in Adults (DC), Laceration Repair With Stitches (DC)
Prescriptions:
No Action
atorvastatin [Lipitor] 40 mg Tablet
40 mg PO HS
acetaminophen [Tylenol] 325 mg Tablet
650 mg PO Q4HPRN PRN (Reason: mild pain)
cyanocobalamin (vitamin B-12) 1,000 mcg Tablet
1,000 mcg PO DAILY
therapeutic multivitamin Tablet
1 tab PO DAILY
melatonin 3 mg Tablet
3 mg PO HS
olanzapine [Zyprexa] 7.5 mg Tablet
7.5 mg PO HS
amlodipine [Norvasc] 10 mg Tablet
10 mg PO DAILY
pantoprazole [Protonix] 40 mg Tablet,Delayed Release (Dr/Ec)
40 mg PO DAILY
sennosides [Senna Lax] 8.6 mg Tablet
17.2 mg PO BID Qty: 0 0RF
acetaminophen 325 mg Tablet
650 mg PO Q4HWA Qty: 0 0RF
polyethylene glycol 3350 [HealthyLax] 17 gram Powder In Packet
17 g PO DAILY Qty: 0 0RF
aspirin 325 mg Tablet
325 mg PO DAILY Qty: 0 0RF
tamsulosin 0.4 mg Capsule
0.4 mg PO DAILYPRN PRN (Reason: bladder scan volume > 400 mL) Qty: 0 0RF
docusate sodium 100 mg Capsule
100 mg PO BID Qty: 0 0RF
Referrals:
Arun Campbell DO [Family Provider] -
Activity Restrictions/Additional Instructions:
As discussed, you are being discharged back to alf for continual care. Your sutures will need to be removed within 5 to 7 days.
Hospital Transfer
Other hospital: [facility]
I certify that the patient requires transfer: Yes
Discussed case with accepting physician: trauma
Reason for transfer: higher level of care
Interventions
Interventions:
*Risk Screen - Suicide Last Done: 01/29/24 05:28
*General Assessment Last Done: 01/29/24 05:28
*Neglect/Abuse Screening Last Done: 01/29/24 05:28
ED- Fall Risk Assessment Last Done: 01/29/24 07:29
*ED COVID-19 Vaccine History Last Done: 01/29/24 07:28
*Nursing Disposition Last Done: 01/29/24 07:29
ED- Neurological Assessment Last Done: 01/29/24 05:35
ED-Skin Assessment Last Done: 01/29/24 05:35
Discharge Date and Time
Discharge Date/Time: 01/29/24 07:20
Print Language: CZECH
[2024-01-29] MEDS: TYLENOL 650 MG PO (05:48)
[2024-01-29 06:59] LABS: % Basophils 0.5 % (0-2); % Eosinophils 1.5 % (0-6); % Immature Granulocytes 0.4 % (0-0.5); % Lymphocytes 12.3 % (20.5-51.1); % Monocytes 8.2 % (1.7-9.3); % Neutrophils 77.1 % (42.2-75.2); Absolute Basophils 0.1 10^3/uL (0-0.2); Absolute Eosinophils 0.2 10^3/uL (0-0.7); Absolute Immature Granulocytes 0.1 10^3/uL (0-0.05); Absolute Lymphocytes 1.6 10^3/uL (1.2-3.4); Absolute Neutrophils 9.7 10^3/uL (1.4-6.5); Hematocrit 38.9 % (37.0-47.0); Mean Corp Hgb Conc. 33.4 g/dL (33.0-37.0); Mean Corpuscular Hgb 28.7 pg (27.0-31.0); Mean Corpuscular Volume 85.9 fL (81.0-99.0); Mean Platelet Volume 9.4 fL (7.4-10.4); Nucleated Red Blood Cells % 0 %; Platelet Count 290 10^3/uL (130-400); Red Blood Cell Count 4.53 10^6/uL (4.20-5.40); Red Cell Dist. Width 14.6 % (11.5-14.5); White Blood Cell Count 12.6 10^3/uL (4.8-10.8)
[2024-01-29 07:09] LABS: ALT (SGPT) 10 U/L (0-35); AST (SGOT) 19 U/L (14-36); Albumin 3.5 g/dl (3.5-5.0); Alkaline Phosphatase 100 U/L (38-126); Blood Urea Nitrogen 18 mg/dl (7-17); Calcium 8.9 mg/dl (8.4-10.2); Carbon Dioxide 27 mmol/L (22-30); Chloride 105 mmol/L (98-107); Glucose 98 mg/dl (70-99); Potassium 3.8 mmol/L (3.5-5.1); Sodium 136 mmol/L (135-145); Total Bilirubin 0.5 mg/dl (0.2-1.3); Total Protein 6.1 g/dl (6.3-8.2); eGFR > 60.00
[2024-01-29 07:16] VITALS: BP 157/76
[2024-01-29 07:29] VITALS: BP 157/76
== END 2024-01-29 07:20 | disposition short-term general hospital (02) ==
LOC: EMR 05:27
PROVIDERS: EMERGENCY PHYSICIAN Emergency Medicine; FAMILY PHYSICIAN Internal Medicine Geriatric Medicine
DX: S01.81XA Laceration without foreign body of other part of head, initial encounter (principal); S06.5XAA Traumatic subdural hemorrhage with loss of consciousness status unknown, initial encounter; W06.XXXA Fall from bed, initial encounter; F03.90 Unspecified dementia, unspecified severity, without behavioral disturbance, psychotic disturbance, mood disturbance, and anxiety; I10 Essential (primary) hypertension
CPT/HCPCS: 99284; 12013; 70450; 72125; 80053; 85025; 93005

== ENCOUNTER 2024-07-22 13:17 | Observation (INO) | payer MEDICARE, SELFPAY ==
[2024-07-22] VITALS (7 sets, daily range): BP systolic 126–155; BP diastolic 73–98; BMI 24.2
[2024-07-22 05:04] LABS: % Basophils 0.5 % (0-2); % Eosinophils 1.4 % (0-6); % Immature Granulocytes 0.5 % (0-0.5); % Lymphocytes 12.7 % (20.5-51.1); % Monocytes 7.8 % (1.7-9.3); % Neutrophils 77.1 % (42.2-75.2); Absolute Basophils 0.1 10^3/uL (0-0.2); Absolute Eosinophils 0.2 10^3/uL (0-0.7); Absolute Immature Granulocytes 0.1 10^3/uL (0-0.05); Absolute Lymphocytes 1.6 10^3/uL (1.2-3.4); Absolute Neutrophils 9.5 10^3/uL (1.4-6.5); Hemoglobin 13.1 g/dL (12.0-16.0); Mean Corp Hgb Conc. 34.5 g/dL (33.0-37.0); Mean Corpuscular Hgb 28.9 pg (27.0-31.0); Mean Corpuscular Volume 83.7 fL (81.0-99.0); Mean Platelet Volume 9.2 fL (7.4-10.4); Nucleated Red Blood Cells % 0 %; Platelet Count 313 10^3/uL (130-400); Red Blood Cell Count 4.54 10^6/uL (4.20-5.40); Red Cell Dist. Width 14.7 % (11.5-14.5); White Blood Cell Count 12.3 10^3/uL (4.8-10.8)
[2024-07-22 05:07] LABS: Urine Albumin Negative (Neg - Trace); Urine Bilirubin Negative (Negative); Urine Character Clear (Clear); Urine Color Yellow; Urine Glucose Negative (Negative); Urine Ketone Negative (Negative); Urine Leukocyte Negative (Negative); Urine Nitrite Negative (Negative); Urine Occult Blood Negative (Negative); Urine Specific Gravity 1.015 (<1.030); Urine Urobilinogen Negative (Neg - 1+)
[2024-07-22 05:18] LABS: ALT (SGPT) 12 U/L (0-35); AST (SGOT) 19 U/L (14-36); Albumin 3.8 g/dl (3.5-5.0); Alkaline Phosphatase 110 U/L (38-126); Blood Urea Nitrogen 17 mg/dl (7-17); Calcium 9.1 mg/dl (8.4-10.2); Carbon Dioxide 24 mmol/L (22-30); Chloride 106 mmol/L (98-107); Estimated Creatinine Clearance 48 ml/min; Glucose 103 mg/dl (70-99); Potassium 4.3 mmol/L (3.5-5.1); Sodium 142 mmol/L (135-145); Total Bilirubin 0.7 mg/dl (0.2-1.3); Total Protein 6.4 g/dl (6.3-8.2); eGFR > 60.00
--- NOTE | 2024-07-22 06:54 | ED.GENMED ---
History of Present Illness
General
Chief Complaint: Change in Mental Status
Source: patient and ambulance crew
Exam Limitations: dementia
Time Seen by Provider: 07/22/24 06:29
Nursing documentation reviewed up to this point in time: agreed with
History of Present Illness
History of Present Illness:
78-year-old female presents emergency ferment due to reported aggression with patient's aide. She is happily lying in bed with her [employer] shahriar bear. She denies any complaints at this time.
Past History
Past History
ED Past Medical History: HTN, Psychiatric and Other (dementia)
Social History
Tobacco: Non-smoker
Alcohol: None
Drug: None
Review of Systems
Review of Systems
Allergies reviewed?: Yes
All Other Systems: Not applicable
Constitutional: Reports no symptoms
EENT: Reports no symptoms
Respiratory: Reports no symptoms
Cardiac: Reports no symptoms
ABD/GI: Reports no symptoms
: Reports no symptoms
Musculoskeletal: Reports back pain and other (Left rib pain)
Skin: Reports no symptoms
Neurological: Reports no symptoms
Endocrine: Reports no symptoms
Hematologic/Lymphatic: Reports no symptoms
Psychiatric: Reports no symptoms
Phy Exam
Physical Exam
Physical Exam:
Physical Exam
General: no apparent distress, not acutely ill
Neck: supple. no meningeal signs. normal posterior pharynx
Heart: s1/s2 regular rate and rhythm, no murmur. equal radial
pulses.
HEENT: Pupils equal round reactive to light, EOMI
Lungs: no acute respiratory distress. clear bilaterally
Abdomen: normal bowel sounds. not tender. no CVAT
Neuro: alert and oriented to person and place. no focal neurological deficits cranial nerves II through XII intact
Skin: no rash
Psychiatric: well kept. interactive and cooperative
Extremities: no edema. no calf tenderness. negative homans. good distal pulses
Course
Orders/Labs/Results
Orders:
Orders
07/22/24 04:47
CMP [Comprehensive Metabolic Panel] Urgent
Complete Blood Count/With Diff Urgent
07/22/24 04:48
UA Reflex to Culture [Urinalysis Reflex To Culture] Urgent
Date Specimen was Collected: 07/22/24
Time Specimen was Collected: 04:38
07/22/24 06:52
Electrocardiogram (*1) Stat
Reason for Study: Other
Other Reason for Exam: agitation
Electrocardiogram (*1) Urgent
Reason for Study: Other
Other Reason for Exam: change in mental status
EKG- Treatment ONCE
CR Chest - 2 Views Urgent
Comment:
Reason For Exam: left side rib pain
07/22/24 08:48
Cefepime HCl [Maxipime] 2,000 mg IV NOW STA
Vancomycin [Vancocin] 1,500 mg 0.9% Sodium Chloride [Nss] 20 ml 0.9% Sodium Chloride 250 ml [Nss] 250 ml IV NOW
07/22/24 09:00
Blood Culture Q30M
KORTNEY Source: Blood/Venous
Specimen Description:
07/22/24 09:24
Lorazepam [Ativan] 2 mg .ROUTE .STK-MED ONE
07/22/24 09:26
Lorazepam [Ativan] 1 mg IM NOW STA
07/22/24 09:30
Blood Culture Q30M
KORTNEY Source: Blood/Venous
Specimen Description:
07/22/24 10:22
Olanzapine [Zyprexa] 5 mg PO NOW STA
07/22/24 10:[address] Non Medication Order As Directed
Physician Order: NOTIFY MD WHEN MED REC DONE
07/22/24 10:[address] Non Medication Order As Directed
Physician Order: PLEASE GET MEDICAL RECORDS FROM RETIREMENT
07/22/24 11:40
PSYCHIATRY CONSULT Urgent
Consulting Provider: Mikael Garcia
Was physician already notified: Yes
07/22/24 12:29
Admit/Transfer Patient As Directed
Co-Sign Provider:
Level of Care: Observation services
Assign to:: Medical/Surgical
Physician / Group: ang granados
Diagnosis: Pnumonia, Dementia with behavioral disturbance
PRN Pain Medication Management As Directed
May give lesser potent ordered pain med per pt: Yes
preference::
Protocol:: Medication orders for pain may be administered in a
manner that supports deferring to patient preference
when the pt is:
- Requesting an ordered lesser potent pain medication.
Least to most potent pain medications are defined
as: acetaminophen < NSAID < tramadol < opioids
(morphine, oxycodone, hydromorphone).
- Requesting a lesser dose of the same medication IF
ORDERED.
- Requesting a less intrusive route of administration
if both routes are prescribed by the provider (PO <
IV).
07/22/24 12:31
Code Status As Directed
Resuscitation Status: Do not resuscitate
Reached after discussion with pt or family/Healthcare POA: Yes
MRSA Screen Routine
KORTNEY Source: Nose
Specimen Description:
DNR Bracelet Application ONCE
07/22/24 12:53
Bladder Scan As Directed
Follow Bladder Retention/Intermittent Cath Algorithm?: Yes
PRN if no void in __ hours: 6
Frequency: Per Retention Algorithm
If Bladder Scan Result >: 400
then:: Straight cath
Straight Cath As Directed
Frequency: Per Retention Algorithm
Additional Instructions: straight cath as needed per acute urinary retention algorithm for 24 hrs
Additional Instructions: for bladder scan greater than 400 mL
07/22/24 12:59
Rx Incentive Spirometry [RESP] Routine
Frequency: q1h while awake
07/22/24 13:00
Guaifenesin [Mucinex] 600 mg PO Q12
07/23/24 06:00
Procalcitonin IN AM
PCT Algorithmm Indication: Respiratory
Abnormal Lab Results
07/22/24
04:47
WBC 12.3 H 10^3/uL
(4.8-10.8)
RDW 14.7 H %
(11.5-14.5)
Abs Immat Gran (auto) 0.1 H 10^3/uL
(0-0.05)
Absolute Neuts (auto) 9.5 H 10^3/uL
(1.4-6.5)
Absolute Monos (auto) 1.0 H 10^3/uL
(0.1-0.6)
Neutrophils % 77.1 H %
(42.2-75.2)
Lymphocytes % 12.7 L %
(20.5-51.1)
Glucose 103 H mg/dl
(70-99)
07/22/24 04:47
07/22/24 04:47
Vital Signs
Initial and Last Documented VS:
Initial Vital Signs
Temp Pulse Resp BP Pulse Ox
99.6 F 72 18 143/82 94
07/22/24 04:32 07/22/24 04:32 07/22/24 04:32 07/22/24 04:32 07/22/24 04:32
Last Documented Vital Signs
Temp Pulse Resp BP Pulse Ox
99.6 F 69 18 155/73 95
07/22/24 04:32 07/22/24 06:00 07/22/24 06:00 07/22/24 13:28 07/22/24 13:35
MDM/Problems Addressed
Differential Diagnosis Includes:
Pneumonia, UTI
MDM/Problems Addressed:
78-year-old female with pneumonia. No signs of UTI. Patient agitated, suspect related to infection. Admit to hospitalist.
Chronic conditions affecting care: HTN and Other (Dementia)
Acute Exacerbation and/or Progression of Chronic Illness: Other (Dementia)
*Radiology
Radiology exam reviewed: radiology read reviewed (Chest x-ray shows left lower lobe pneumonia)
*Pulse Oximetry
Patient hypoxic: no
*EKG
Interpreted by ED Provider?: Yes
EKG Intrepretation Date: 07/22/24
EKG Intrepretation Time: 07:11
Interpretation: normal
Comparison EKG: no comparison EKG present
Heart Rate: 63
Rate: normal
Rhythm: sinus
[place]: normal axis
Interval: normal interval
QRS Pattern: normal QRS
Ischemia: no ischemia
*Unitizer Interpretation
Rate: normal
Interpretation: normal
Heart Rate: 63
Rhythm: sinus
*Critical Care Note
Total Time (30-74mins, 75-104mins- exclusive of procedures): Not Applicable
Data Reviewed
Further Testing Considered But Not Given:
ct head not indicated
ED Attending Note
-
Portions of this chart may have been created with voice recognition software.� Occasional wrong word or��sound alike� substitutions may have occurred due to the inherent limitations of voice recognition software.
Discharge Plan
Departure
Patient Disposition: Admit
Date of Disposition: 07/22/24
Time of Disposition: 08:52
Admit to: Telemetry
Presentation/result/management discussed w/ accepting MD/DO: Hospitalist
Patient with high blood pressure during this ER visit?: Yes
Condition: Good
Discharge Problem:
Left lower lobe pneumonia
Interventions
Interventions:
*Risk Screen - Suicide Last Done: 07/22/24 04:32
*General Assessment Last Done: 07/22/24 04:32
*Neglect/Abuse Screening Last Done: 07/22/24 04:32
ED- Fall Risk Assessment Last Done: 07/22/24 04:32
*ED COVID-19 Vaccine History Last Done: 07/22/24 04:32
ED- Pulmonary Assessment Last Done: 07/22/24 10:00
ED-Psychological Assessment Last Done: 07/22/24 10:00
ED- Neurological Assessment Last Done: 07/22/24 05:52
ED Swallowing Screen Last Done: 07/22/24 05:52
[2024-07-22] MEDS: ATIVAN 1 MG IM ×2 (09:35→16:38)
--- NOTE | 2024-07-22 12:24 | HPS.HSE ---
Family Physician
-
Family Physician: Arun Campbell
Chief Complaint
-
Agitation, confusion
History of Present Illness
78-year-old female with past medical history of dementia with behavioral disturbances, hypertension, history of fall with subdural hematoma, history of right hip fracture status post surgery came to the hospital from dementia unit with worsening
agitation. In the ED patient appeared to have cough and has pneumonia. She was agitated in the ED and required Ativan. Currently denies any chest pain, shortness of breath. Spoke with daughter over the phone, patient at baseline AO x 1.
Medical History
Past Medical History
Past Medical History: Reports Other (Dementia with behavioral disturbance, hypertension)
Past Surgical History: Reports Other (Hip fracture surgery)
Social History
Unable to obtain full social history at this time due to: Dementia
Family History
Family History: Not pertinent
Allergies / Home Medications
Allergies reflects when Allergies were last updated in [facility].
Home Medications with original date entered in [facility]
Allergy/Medication List:
Allergies
Allergy/AdvReac Type Severity Reaction Status Date / Time
Penicillins Allergy Unknown Verified 07/22/24 04:31
Home Medications
acetaminophen 325 mg tablet (Tylenol) 650 mg PO Q4HPRN PRN mild pain 10/14/23
amlodipine 10 mg tablet (Norvasc) 10 mg PO DAILY Blood Pressure 10/14/23
atorvastatin 40 mg tablet (Lipitor) 40 mg PO HS High Cholesterol 10/14/23
cyanocobalamin (vitamin B-12) 1,000 mcg tablet 1,000 mcg PO DAILY Supplement 10/14/23
melatonin 3 mg tablet 3 mg PO HS Sleep 10/14/23
olanzapine 7.5 mg tablet (Zyprexa) 7.5 mg PO HS Mental Health/Anxiety 10/14/23
pantoprazole 40 mg tablet,delayed release (Protonix) 40 mg PO DAILY Gastrointestinal Issue 10/14/23
therapeutic multivitamin 1 tab PO DAILY Supplement 10/14/23
acetaminophen 325 mg tablet 650 mg (2 x 325 mg) PO Q4HWA #0 tabs 10/31/23
aspirin 325 mg tablet 325 mg PO DAILY #0 tabs 10/31/23
docusate sodium 100 mg capsule 100 mg PO BID #0 caps 10/31/23
polyethylene glycol 3350 17 gram oral powder packet (HealthyLax) 17 g PO DAILY #0 ea 10/31/23
sennosides 8.6 mg tablet (Senna Lax) 17.2 mg (2 x 8.6 mg) PO BID #0 tabs 10/31/23
tamsulosin 0.4 mg capsule 0.4 mg PO DAILYPRN PRN bladder scan volume > 400 mL #0 caps 10/31/23
Review of Systems
-
Unable to obtain full review of systems at this time due to: Dementia
Physical Exam
Vital Signs
Vital Signs
Temp Pulse Resp BP Pulse Ox
99.6 F 69 18 126/77 94
07/22/24 04:32 07/22/24 06:00 07/22/24 06:00 07/22/24 09:11 07/22/24 09:15
Physical Exam
General: No Apparent Distress
HEENT: Anicteric and Moist mucous membranes
Respiratory: Clear; No Wheezes
Cardiac: S1/S2 and Regular Rhythm
Breast: Deferred by me
GI: Soft and Non Tender
Rectal: Deferred by Provider
Genito-urinary: No Nicolas
Musculoskeletal: No Edema
Neuro: Awake
Psych: Agitated and Apparent Dementia
Laboratory Results
-
07/22/24 04:47
07/22/24 04:47
Laboratory Results
Total Bilirubin 0.7 mg/dl (0.2-1.3) 07/22/24 04:47
AST 19 U/L (14-36) 07/22/24 04:47
ALT 12 U/L (0-35) 07/22/24 04:47
Alkaline Phosphatase 110 U/L (38-126) 07/22/24 04:47
Data Reviewed
-
Lab Data: Labs Reviewed by me, Discussed with Physician and Discussed with Family
Impression/Plan
-
Mild chest pain appears secondary to pneumonia
check Pro-Ravi
Chest x-ray with left lower lobe opacity
mild leukocytosis
Continue with Vanco and cefepime for now, check MRSA screen, if negative then DC vancomycin
Senile dementia with behavioral disturbances
Currently med rec pending, was on Zyprexa last admission
Psych consulted
Ativan given in the ED
at memory care unit currently; per brother she is not oriented at baseline
History of subdural hematoma
History of hypertension
Currently normotensive, monitor
Med rec pending
History of right hip fracture status post hemiarthroplasty
DVTppx
lovenox
DNR; confirmed with brother over the phone on admission
--- NOTE | 2024-07-22 12:54 | HPS.HSE ---
Family Physician
-
Family Physician: Arun Campbell
Chief Complaint
History of Present Illness
Past medical history fall with subdural hematoma October 14, 2023, essential HTN, hyperlipidemia senile dementia with behavioral disturbance, right hip fracture status post right hip hemiarthroplasty on 10/28/2023, UTIs
Impression/plan:
Admit to [facility]
94% RA,
90 9.6F, 126/77, HR 69
CXR: Faint left lower lobe opacity which could represent subsegmental atelectasis and/or pneumonia cannot exclude accompanying tiny left pleural effusion
EKG: NSR 63 bpm, QTc 407 MS T wave abnormality lateral leads with T wave flattening
Medical History
Allergies / Home Medications
Allergies reflects when Allergies were last updated in [facility].
Home Medications with original date entered in [facility]
Physical Exam
Vital Signs
Vital Signs
Temp Pulse Resp BP Pulse Ox
99.6 F 69 18 126/77 94
07/22/24 04:32 07/22/24 06:00 07/22/24 06:00 07/22/24 09:11 07/22/24 09:15
Laboratory Results
-
07/22/24 04:47
07/22/24 04:47
Laboratory Results
Total Bilirubin 0.7 mg/dl (0.2-1.3) 07/22/24 04:47
AST 19 U/L (14-36) 07/22/24 04:47
ALT 12 U/L (0-35) 07/22/24 04:47
Alkaline Phosphatase 110 U/L (38-126) 07/22/24 04:47
Impression/Plan
-
IMPRESSION:
PLAN:
--- NOTE | 2024-07-22 14:03 | W.PN.UPDATE ---
Update Note
Progress Note Update
78 yo lady who is unable to give ne any information. Currently is calm with a stuffed toy in her arms.
She apparently was agitated in her SNF. Likely she has seen a psychiatrist there as she is taking Lexapro 10 mg and Ativan 0.5 mg q6h prn.
Tried to call contacts but no answer.
Most likely patient has Dementia with Delirium.
I would use for now Zyprexa 2.5 mg q 6h prn for agitation untill we have more information.
[2024-07-22] MEDS: MAXIPIME 2000 MG IV (16:34)
--- NOTE | 2024-07-22 17:33 | PHA.VAN.IN ---
Assessment
- Assessment
Renal Function: Appears similar to baseline
Concomitant Antimicrobials: CEFEPIME
AUC Dosing Plan
- Dosing Variables
Dosing Weight (kg): 56
Dosing CrCl (ml/min): 48
Vd coefficient (L/kg): 0.7
- Empiric Dosing
Initial / Loading Dose: VANCO 1500MG X1
Maintenance Regimen: VANCO 1000MG Q24H
Estimated AUC (mcg*h/mL): 589
Estimated Peak (mcg*h/mL): 39
Estimated Trough (mcg/ml): 14.1
Estimated Half Life (H): 15.7
- Monitoring
No levels ordered at this time: CONSIDER LEVEL PRIOR TO 4TH MAINTENANCE DOSE
MRSA Screen: Ordered per protocol
Pharmacokinetics Vancomycin I
- -
Patient Age: 78
Patient Sex: Female
Vancomycin Day #: 1
Indication: PULM
Requesting Provider: DR. MENDES
Pertinent Antimicrobial Allergies:
PCN (UNKNOWN, TOLERATED CEFAZOLIN 06/2024)
Height / Weight:
Height 5 ft
Actual Weight 56.3 kg
Pertinent Past Medical History: S/P RIGHT HIP SURGERY
- Vital Signs / Lab Results
Temp Pulse Resp BP Pulse Ox
98.5 F 85 21 152/98 94
07/22/24 17:32 07/22/24 17:32 07/22/24 17:32 07/22/24 17:32 07/22/24 17:32
Lab Results - Hematology
07/22/24
04:47
WBC 12.3 H
Lab Results - Chemistry
07/22/24
04:47
BUN 17
Creatinine 0.7
Estimated Creat Clear 48
Albumin 3.8
Lab Results - Urine
07/22/24
04:48
Urine Nitrite (Reflex) Negative
Leukocyte Esterase Rfl Negative
[2024-07-22] MEDS: VANCOCIN 300 MG IV (17:49)
[2024-07-22] MEDS: VANCOCIN 300 ML IV (17:49)
[2024-07-22] MEDS: LOVENOX 40 MG SC (17:52)
--- NOTE | 2024-07-22 19:08 | EDRN ---
Attempted to give the maxipime IV to the patient for the second time today and the patient had removed her IV for the second time today. Did not have the bottle anymore as it was disposed of in the sharps container. Escorted patient to the floor
with the tech so medication could be administered after a new IV was established. Administered the medication on the floor after IV team completed patent site.
[2024-07-23] MEDS: LEXAPRO 10 MG PO (00:14)
[2024-07-23] MEDS: ZYPREXA 7.5 MG PO (00:14)
[2024-07-23] MEDS: NORVASC 5 MG PO ×2 (00:14→09:26)
[2024-07-23] MEDS: VANCOCIN 200 IV (05:54)
[2024-07-23 05:56] VITALS: BMI 22.6
[2024-07-23 06:16] LABS: % Basophils 0.5 % (0-2); % Eosinophils 1.5 % (0-6); % Immature Granulocytes 0.4 % (0-0.5); % Lymphocytes 21.4 % (20.5-51.1); % Monocytes 8.3 % (1.7-9.3); % Neutrophils 67.9 % (42.2-75.2); Absolute Basophils 0.1 10^3/uL (0-0.2); Absolute Eosinophils 0.2 10^3/uL (0-0.7); Absolute Lymphocytes 2.4 10^3/uL (1.2-3.4); Absolute Monocytes 0.9 10^3/uL (0.1-0.6); Absolute Neutrophils 7.5 10^3/uL (1.4-6.5); Hematocrit 40.8 % (37.0-47.0); Hemoglobin 13.9 g/dL (12.0-16.0); Mean Corp Hgb Conc. 34.1 g/dL (33.0-37.0); Mean Corpuscular Hgb 28.8 pg (27.0-31.0); Mean Corpuscular Volume 84.6 fL (81.0-99.0); Mean Platelet Volume 9.1 fL (7.4-10.4); Nucleated Red Blood Cells % 0 %; Platelet Count 300 10^3/uL (130-400); Red Blood Cell Count 4.82 10^6/uL (4.20-5.40); Red Cell Dist. Width 14.8 % (11.5-14.5); White Blood Cell Count 11.1 10^3/uL (4.8-10.8)
[2024-07-23 07:53] VITALS: BP 169/75
--- NOTE | 2024-07-23 08:18 | W.PN.HOSP.TC ---
Addendum entered and electronically signed by Robert Hampton MD 07/23/24 23:41:
Attending Addendum:
I saw and evaluated the patient. I reviewed the resident�s note and agree with findings and plan as documented in the resident�s note. Sub: pleasantly demented. no ON events per nursing Full 12 point ROS reviewed and negative except as documented
Exam: Vitals reviewed in chart GEN-NAD heart RRR lungs LLL rhonchi abd soft LE no edema AAOx1
# CAP
- MRSA neg
- DC vanco and cefepime
- DC on doxy and cefdinir
# Senile dementia with behavioral disturbances
-psych input appreciated
- not far from baseline
- Ativan given in the ED
- zyprexa started would not continue on dc
- at memory care unit currently; per brother she is not oriented at baseline
- dc home
History of subdural hematoma
History of hypertension
Currently normotensive, monitor
Med rec pending
History of right hip fracture status post hemiarthroplasty
DVTppx
lovenox
DNR; confirmed with brother over the phone on admission
Dispo Dc back to [facility]
Time spent coordinating care, DC planning, review of DC plan of care with resident, transition of care, review of records, med rec/scripts sent electronically, consults, notes, d/w consultants, nursing, and CM� 35 mins
Original Note:
Today's Communication/Plan
-
* Discontinue vancomycin, and narrow cefepime to doxycycline+cefdinir.
* Olanzapine 2.5 mg q6h prn for agitation.
* PT-OT consult.
* Anticipated discharge today.
Assessment / Plan
Assessment / Plan
Assessment
Jovana Robin, age 78, came to the hospital on 07-22-24 with worsening agitation from the memory care unit of [facility]. She was noted to have a cough and chest x-ray was indicative of mild left lower lobe pneumonia. Hemodynamically stable
without respiratory distress. Admitted for observation.
Impression and plan
Community acquired pneumonia
- Chest x-ray findings suggestive of faint left lower lobe opacity.
- Mild leukocytosis; other blood work unremarkable; procalcitonin negative.
- Afebrile and hemodynamically stable.
- Blood cultures pending.
- MRSA screen negative; discontinue vancomycin.
- Narrowing cefepime to cefdinir+doxycycline would be appropriate.
Dementia with delirium
- Lives in the memory care unit at [facility].
- Needed lorazepam for agitation in the ED.
- According to family, she is not oriented at baseline.
- On escitalopram and lorazepam 0.5 mg q6h prn at the facility.
- Given olanzapine 7.5 mg HS during admission; discontinue.
- Psychiatry following; recommended olanzapine 2.5 mg q6h prn.
Essential hypertension
- Continue amlodipine.
Hyperlipidemia
- Continue atorvastatin.
Gastroesophageal reflux disease
- Continue pantoprazole.
Chronic constipation
- Continue sennosides and polyethylene glycol.
History of subdural hematoma
History of right hip fracture status-post hemiarthroplasty
Thromboprophylaxis
- On enoxaparin.
Code status
- DNR-DNI.
Anticipated Discharge: Today
Subjective/Interval History
-
Date of Service: July 23, 2024
No significant overnight events reported. Patient has remained calm and has not been agitated.
Objective Data
-
Labs:
Laboratory Results
07/23/24 07/23/24
06:03 07:43
WBC 11.1 H
Hgb 13.9
Hct 40.8
Plt Count 300
Sodium Cancelled Pending
Potassium Cancelled Pending
Chloride Cancelled Pending
Carbon Dioxide Cancelled Pending
BUN Cancelled Pending
Creatinine Cancelled Pending
Glucose Cancelled Pending
Calcium Cancelled Pending
Total Bilirubin Cancelled Pending
AST Cancelled Pending
ALT Cancelled Pending
Alkaline Phosphatase Cancelled Pending
Vital Signs:
Vital Signs
Temp Pulse Resp BP Pulse Ox
97.6 F 62 18 169/75 95
07/23/24 07:53 07/23/24 07:53 07/23/24 07:53 07/23/24 07:53 07/23/24 07:53
I&O
07/22/24 07/23/24 07/24/24
06:59 06:59 06:59
Intake Total 240 / 240
Balance 240 / 240
Review of Systems
-
Unable to obtain full review of systems at this time due to: Dementia
Physical Exam
-
General: No Apparent Distress and Comfortable
HEENT: Normocephalic, Atraumatic, Moist Mucous Membranes and Anicteric
Respiratory: Rales (left base) and Non Labored Respirations; Negative Wheezes or Rhonchi
Cardiac: Regular Rhythm and S1/S2
GI: Soft, Nontender and Nondistended
Musculoskeletal: No Clubbing, No Cyanosis and No Edema
Skin: Warm, Dry and IV Access / Catheter Site
Neuro: Awake, Alert, No Motor Deficits and Other (somnolent); Negative Oriented
Psych: Calm
[2024-07-23 08:48] LABS: Procalcitonin < 0.05 ng/ml (0.0-0.25)
[2024-07-23 08:56] LABS: ALT (SGPT) 12 U/L (0-35); AST (SGOT) 20 U/L (14-36); Albumin 3.7 g/dl (3.5-5.0); Alkaline Phosphatase 122 U/L (38-126); Blood Urea Nitrogen 16 mg/dl (7-17); Calcium 8.9 mg/dl (8.4-10.2); Carbon Dioxide 23 mmol/L (22-30); Chloride 105 mmol/L (98-107); Estimated Creatinine Clearance 42 ml/min; Glucose 89 mg/dl (70-99); Sodium 142 mmol/L (135-145); Total Bilirubin 0.9 mg/dl (0.2-1.3); Total Protein 6.2 g/dl (6.3-8.2); eGFR > 60.00
[2024-07-23] MEDS: VITAMIN B-12 1000 MCG PO (09:25)
[2024-07-23] MEDS: LASIX 20 MG PO (09:25)
[2024-07-23] MEDS: PROTONIX 40 MG PO (09:26)
--- NOTE | 2024-07-23 10:09 | CM ---
Addendum entered by [facility] 07/23/24 15:17:
Per resident/Al, ready for dc
Call with nursing/Annette at [facility]
Clinicals reviewed and pt accepted back for re-admission
Requested hard script for outpt PT/OT eval and treat
Transport forms completed
Pt will require BLS
Update to brother/Figueroa
Discharge Disposition- return to [facility] care with outpt PT/OT via BLS
Phone- [phone] Annette
Fax- [facility] declined faxed copy of paperwork, only wants hard copy
Addendum entered by [facility] 07/23/24 11:07:
Call from [facility] nursing
Pt is independent with ambulation, no ADs
She requires coaxing and cueing for personal care
Typically AxO 1x, pleasant and typically no behaviors
PCP- Arun Campbell
Rx- Puneet
Original Note:
CM spoke with brother/Figueroa LAMB
Pt is a resident at [facility] memory care facility
His dtr/Carina is a backup contact if needed
MOYA verbally reviewed- copy emailed to [email or web address]
VM left with [facility] nursing requesting call back to obtain PLOF
Discharge Disposition- anticipate return to [facility] memory care
[2024-07-23] MEDS: VIBRAMYCIN 100 MG PO (15:11)
[2024-07-23] MEDS: OMNICEF 300 MG PO (15:11)
[2024-07-23 15:26] VITALS: BP 110/73
--- NOTE | 2024-07-23 16:18 | W.DCSUMMARY ---
Addendum entered and electronically signed by Robert Hampton MD 07/23/24 23:42:
Read, reviewed, and agree. See same day progress note for additional details. DC back to [facility] on abx for CAP.
Jair Hampton MD
Original Note:
Documented by User: Ashish Melendez MD, Resident 07/23/24 16:35
Discharge Summary
Discharge Data
Date of Admission: 07/22/24
Date of Discharge: 07/23/24
-
Pending Results: No
Hospital Course
Primary discharge diagnosis
* Community acquired bacterial pneumonia
Secondary discharge diagnoses
- Dementia with delirium
- Essential hypertension
- Hyperlipidemia
- Gastroesophageal reflux disease
- Chronic constipation
- History of subdural hematoma
- History of right hip fracture status-post hemiarthroplasty
- Generalized anxiety disorder
- Chronic insomnia
Hospital course
Jovana Robin, age 78, came to the hospital from the memory care unit of [facility] due to worsening agitation and cough on 07-22-24. In the emergency, patient was found to have persistent coughing and agitation requiring lorazepam. Chest imaging
was suggestive of mild left lower lobe pneumonia; the patient was admitted for observation overnight and started on broad-spectrum antibiotic coverage with cefepime and vancomycin. Blood work showed mild leukocytosis, which down-trended the next
day. Other lab work, including blood cultures were negative. Psychiatry was consulted; recommended olanzapine for agitation. Patient remained stable and pleasant overnight; respiratory status remained stable. Patient was hemodynamically stable
throughout the hospital stay with vitals within normal limits. On the day of discharge, the patient was doing well and physical exam was reassuring. Antibiotic coverage was narrowed to doxycycline and cefdinir; medications sent to the pharmacy to
complete 7 days of antibiotics outpatient. Recommended follow-up with primary within a week of discharge.
Discharge Plan
-
Patient Disposition: Shelter/SNF
Discharge Diagnosis/Procedures: Community acquired pneumonia
Condition: Good
Diet: Regular
Activity: As tolerated
Driving Restrictions: No driving
Bathing Restrictions: None
Blood Work: CBC and BMP in 1 week
Referrals:
Arun Campbell DO [Family Provider] - in less than 1 week
Prescriptions:
New
doxycycline hyclate 100 mg capsule
100 mg PO BID 7 Days Qty: 14 0RF
cefdinir 300 mg capsule
300 mg PO BID 7 Days Qty: 14 0RF
Continued
atorvastatin [Lipitor] 40 mg Tablet
40 mg PO HS
cyanocobalamin (vitamin B-12) 1,000 mcg Tablet
1,000 mcg PO DAILY
melatonin 3 mg Tablet
3 mg PO HS
pantoprazole [Protonix] 40 mg Tablet,Delayed Release (Dr/Ec)
40 mg PO DAILY
sennosides [Senna Lax] 8.6 mg Tablet
17.2 mg PO BID Qty: 0 0RF
polyethylene glycol 3350 [HealthyLax] 17 gram Powder In Packet
17 g PO DAILY Qty: 0 0RF
dextromethorphan-guaifenesin 10-100 mg/5 mL Syrup
10 ml PO Q6HPRN PRN (Reason: cough)
amlodipine 5 mg Tablet
5 mg PO BID
lorazepam 0.5 mg Tablet
0.5 mg PO Q6HPRN PRN (Reason: anxiety)
furosemide 20 mg Tablet
20 mg PO DAILY
escitalopram oxalate 10 mg Tablet
10 mg PO HS
acetaminophen 325 mg tablet
650 mg PO DAILYPRN PRN (Reason: mild pain/temp >100)
docusate sodium 100 mg capsule
100 mg PO BID
Discharge Orders:
Discharge Patient (As Directed); Ordered 07/23/24
Ordered By: Ashish Melendez
Discharge Date and Time
Discharge Date/Time: 07/23/24 19:42
Print Language: ALBANIAN

Documented by User: Robert Hampton MD 07/23/24 23:37
Discharge Summary
Discharge Data
Date of Admission: 07/22/24
Date of Discharge: 07/23/24
Discharge Plan
-
Patient Disposition: Shelter/SNF
Discharge Diagnosis/Procedures: Community acquired pneumonia
Condition: Good
Diet: Regular
Activity: As tolerated
Driving Restrictions: No driving
Bathing Restrictions: None
Blood Work: CBC and BMP in 1 week
Referrals:
Arun Campbell DO [Family Provider] - in less than 1 week
Prescriptions:
New
doxycycline hyclate 100 mg capsule
100 mg PO BID 7 Days Qty: 14 0RF
cefdinir 300 mg capsule
300 mg PO BID 7 Days Qty: 14 0RF
Continued
atorvastatin [Lipitor] 40 mg Tablet
40 mg PO HS
cyanocobalamin (vitamin B-12) 1,000 mcg Tablet
1,000 mcg PO DAILY
melatonin 3 mg Tablet
3 mg PO HS
pantoprazole [Protonix] 40 mg Tablet,Delayed Release (Dr/Ec)
40 mg PO DAILY
sennosides [Senna Lax] 8.6 mg Tablet
17.2 mg PO BID Qty: 0 0RF
polyethylene glycol 3350 [HealthyLax] 17 gram Powder In Packet
17 g PO DAILY Qty: 0 0RF
dextromethorphan-guaifenesin 10-100 mg/5 mL Syrup
10 ml PO Q6HPRN PRN (Reason: cough)
amlodipine 5 mg Tablet
5 mg PO BID
lorazepam 0.5 mg Tablet
0.5 mg PO Q6HPRN PRN (Reason: anxiety)
furosemide 20 mg Tablet
20 mg PO DAILY
escitalopram oxalate 10 mg Tablet
10 mg PO HS
acetaminophen 325 mg tablet
650 mg PO DAILYPRN PRN (Reason: mild pain/temp >100)
docusate sodium 100 mg capsule
100 mg PO BID
Discharge Orders:
Discharge Patient (As Directed); Ordered 07/23/24
Ordered By: Ashish Melendez
Discharge Date and Time
Discharge Date/Time: 07/23/24 19:42
Print Language: ALB[place]
[2024-07-23] MEDS: LOVENOX 40 MG SC (17:57)
== END 2024-07-23 19:42 | disposition home or self-care (01) ==
LOC: 3 WEST ACU 13:17
PROVIDERS: Emergency Medicine; Student in an Organized Health Care Education/Training Program; ADMITTING PHYSICIAN Internal Medicine; ATTENDING PHYSICIAN Family Medicine; EMERGENCY PHYSICIAN Emergency Medicine; FAMILY PHYSICIAN Internal Medicine Geriatric Medicine
DX: J15.9 Unspecified bacterial pneumonia (principal); R41.82 Altered mental status, unspecified; F03.911 Unspecified dementia, unspecified severity, with agitation; F03.94 Unspecified dementia, unspecified severity, with anxiety; F03.918 Unspecified dementia, unspecified severity, with other behavioral disturbance; I10 Essential (primary) hypertension; R07.81 Pleurodynia; F41.1 Generalized anxiety disorder; R94.31 Abnormal electrocardiogram [ECG] [EKG]; E78.5 Hyperlipidemia, unspecified; K21.9 Gastro-esophageal reflux disease without esophagitis; K59.09 Other constipation; F05 Delirium due to known physiological condition; F51.04 Psychophysiologic insomnia; Z91.81 History of falling; Z88.0 Allergy status to penicillin; Z66 Do not resuscitate; Z96.641 Presence of right artificial hip joint
CPT/HCPCS: 71046; 80053; 81003; 84145; 85025; 87040; 87070; 87641; 93005; 96372; 97163; 97166; 99285; G0378